=== PATIENT | male | born 1965 | race Caucasian/White ===

== ENCOUNTER 2019-08-09 06:14 | Emergency (ER) | payer MEDICAID, SELFPAY ==
[2019-08-09] VITALS (28 sets, daily range): BP systolic 130–171; BP diastolic 73–112; PULSE 88–114; RESP 14–24; TEMP 37.4; O2SAT 91–96
--- NOTE | 2019-08-09 06:22 | ED.GENADUL_ITS ---
Discharge Plan Disposition Patient Disposition: HOME Condition: Good Discharge Details Chief Complaint: Chest Pain Clinical Impression: Anxiety, Chest pain Primary Care Provider: None,None ED Provider: Bob Zhang Home Meds and New Rx's Prescriptions: No Action No Known Home Meds RF: 0 Discharge Instructions Instructions: Chest Pain (ED) Additional Instructions: At this time your work-up shows no signs of significant abnormality for your heart or lungs. Anxiety may have been a component. However if you have a return of your symptoms it is important to return immediately for reassessment. If you notice any worsening of your symptoms, or any new symptoms such as vomiting, diarrhea, fever, chills, shortness of breath, chest pain, numbness, weakness, or fainting , please return immediately to the emergency department for reevaluation. Please follow up with your primary care provider as soon as possible for reassessment and reevaluation. As always, it was a pleasure participating in your medical care today. Medical Decision Making <Raghu Biswas MD - Last Filed: 08/09/19 08:17> Patient presenting with what I think is likely anxiety/panic attack. Doubt that this is alcohol withdrawal especially since he just drank prior to coming in. Chest tightness for days with normal EKG. Twinges of chest pain are fleeting and not clinically significant. He unfortunately does have tachycardia and is older than 50 so cannot be perked out. D-dimer sent. Low risk by Wells criteria. Will give aspirin but I really do not suspect cardiac etiology for tightness. More likely anxiety and will receive IV Ativan for that. 8:00 - patient's labs are fine except for positive age adjusted d-dimer. His symptoms resolved with Ativan. Chest x-xray with questionable findings on left but he has no fever, cough or white count so not pneumonia. With the positive d-dimer will get CTA. If negative will discharge with few Ativan and refer to PCP. Signed out to Dr. Zhang. ECG Data Attestation: I personally reviewed and interpreted this ECG (s) as follows: Prior ECG tracings: not available for review Interpretation: Sinus tachycardia at 107. Normal axis and intervals. Normal ST segments. <Bob Zhang DO - Last Filed: 08/09/19 10:04> Case was signed out to me by my colleague Dr. Raghu Biswas. Pending CTA results. Patient was evaluated and thought to be very low risk for cardiac etiology and felt that the symptoms more likely anxiety related per Dr. Biswas. Upon my assessment I agree with this assessment. CT Mini results are negative for any PE or significant abnormality. There is evidence of mild emphysema. Laboratory work-up is otherwise unremarkable. Troponin normal, EKG benign. At this time the patient is feeling much better after Ativan was given, and would like to go home. I do feel this is appropriate. Patient will be discharged with close follow-up with his PCP. Clinical symptomatology at this time is clinically inconsistent with ACS, PE or dissection. I have extensively reviewed the treatment plan and discharge instructions with the patient and their family. I have addressed all patient concerns at this time. The patient and family was made aware of what symptoms to monitor for that would warrant a return to the emergency department. Discussed the plan with the patient and family, they demonstrate verbal understanding and agreement with our assessment and plan at this time. HPI <Raghu Biswas MD - Last Filed: 08/09/19 08:17> General Mode of arrival: ambulatory . Date/Time Provider Initiated Documentation: 08/09/19 06:19 . Limitations to Documentation: no limitations . Information obtained by: patient and RN notes reviewed . HPI Narrative: Patient presents to ED with complaint of chest tightness as well as seconds of twinges in his chest. The tightness has been ongoing for days. The twinges com e and go randomly. He feels maybe a little short of breath at times. He denies fever, cough, vomiting, diarrhea, abdominal pain. He reports having issues with anxiety since he lost his job back in the fall. Since then he admits to increased alcohol use. In the last few weeks that alcohol use has increased significantly according to him. He reports having a shot of alcohol prior to coming into ED to be evaluated for this tightness that he is experiencing. He is extremely anxious and shaky here. He denies any significant past medical history. He does use e-cigarettes. Related Data Home Medications Medication Instructions Recorded Confirmed Unknown [No Known Home Meds] 08/09/19 08/09/19 Allergies Allergy/AdvReac Type Severity Reaction Status Date / Time aripiprazole [From Abilify] AdvReac Intermediate Dumb and Unverified 07/22/15 10:58 subdued escitalopram oxalate AdvReac Intermediate Suicidal Unverified 07/22/15 10:58 [From Lexapro] venlafaxine HCl AdvReac Intermediate suicidal Unverified 07/22/15 10:58 [From Effexor] General Stated Complaint: Chest Pain RAE: 2 Review of Systems <Raghu Biswas MD - Last Filed: 08/09/19 08:17> Narrative: 03/27 Review of Systems completed and is negative except as stated above in HPI (Systems reviewed: Const, Eyes, ENT, Resp, CV, GI, , MSK, Skin, Neuro) PFSH <Raghu Biswas MD - Last Filed: 08/09/19 08:17> Medical History (Updated 08/09/19 @ 09:55 by Bob Zhang DO) TBI (traumatic brain injury) (Chronic) Surgical History (Updated 08/09/19 @ 06:36 by Raghu Biswas MD) No significant past surgical history (Acute) Family History Mother , Glialblastoma No problems noted. Father Mental disorder Situational depression (s/p trauma) Son No problems noted. Son No problems noted. Son No problems noted. Paternal Grandmother , Old age at age 92. No problems noted. Paternal Grandfather , Old age at age 92. No problems noted. Maternal Grandmother , CVA at age 80. No problems noted. Maternal Grandfather , [place] at age 76. No problems noted. Social History Smoking/Tobacco Use Status: Current every day Tobacco Type: e-cigarettes Alcohol Intake: current Alcohol Intake frequency: 3 or more drinks per day Alcohol type: beer and hard liquor Drug use: Rarely Substance use type: marijuana Do you feel safe at home: Yes Do you feel safe in your relationship?: Yes Exam <Raghu Biswas MD - Last Filed: 08/09/19 08:17> Narrative Exam Narrative: Vitals: Afebrile. Elevated blood pressure. Mild tachycardia. Normal room air pulse oximetry. Const: Thin male in NAD but appears very anxious. HEENT: NC/AT. Normal facial exam. Eyes: Normal conjunctiva and sclera. Neck: Supple. Trachea midline. Lungs: Normal respiratory effort. Lungs are clear. Cor: RRR without murmur/gallop. Good radial pulses. GI: Soft. NT/ND. No guarding or rebound. Neuro: A+O x 3. Normal speech, mentation, gait. Cranial nerves II - XII grossly intact. No gross motor or sensory deficit. Ext: No C/C/E. No calf tenderness. Skin: Warm and dry without rash. Course <Raghu Biswas MD - Last Filed: 08/09/19 08:17> Vital Signs Vital signs: Vital Signs Respiratory Rate 16 08/09/19 06:17 Blood Pressure 152/112 H 08/09/19 06:17 Pulse Oximetry 95 08/09/19 06:17 Respiratory Rate 16 08/09/19 06:17 Blood Pressure 152/112 H 08/09/19 06:17 Pulse Oximetry 95 08/09/19 06:17 Pain Level 5 08/09/19 06:17 Sign Out <Raghu Biswas MD - Last Filed: 08/09/19 08:17> Sign Out Data: Sign Out Comment: pending CTA Last updated by Raghu Biswas MD at 08/09/19 08:17
--- NOTE | 2019-08-09 06:30 | DI.RAD_ITS ---
EXAM: XR CHEST 2V PA LATERAL INDICATION: chest tightness. COMPARISON: No exams were available for comparison TECHNIQUE: 2D digital imaging was performed. FINDINGS: Heart size is normal. Leads overlie the chest. The lungs appear clear. No infiltrate, effusion or pneumothorax is seen. IMPRESSION: No acute abnormality. DATA REPOSITORY: RADIATION DOSE DELIVERED:
[2019-08-09 07:01] LABS: Abs Immature Grans 0.01 k/cumm (0.0-0.09); Absolute Basophil Count 0.02 k/cumm (0.0-0.2); Absolute Eosinophil Count 0.15 k/cumm (0.0-0.7); Absolute Lymphocyte Count 1.71 k/cumm (1.2-3.4); Absolute Monocyte Count 0.62 k/cumm (0.11-0.7); Absolute Neutrophil Count 3.97 k/cumm (1.2-6.7); Basophils % 0.3; Eosinophils % 2.3; HCT 44.2 % (40.0-50.0); HGB 15.1 g/dL (13.5-17.5); Immature Grans % 0.2 %; Lymphocytes % 26.4; Mean Corp. HGB Concentration 34.2 g/dL (32.0-36.0); Mean Corpuscular Hemoglobin 31.1 pg (27.0-33.0); Mean Corpuscular Volume 91.1 fL (80-95); Mean Platelet Volume 8.7 fL (8.0-11.0); Monocytes % 9.6; Neutrophils % 61.2; Platelet Count 282 x1000/uL (130-400); RBC 4.85 m/cumm (4.50-6.00); RBC Distribution Width 12.9 % (11.8-14.1); White Blood Cell Count 6.48 k/cumm (4.4-10.8)
[2019-08-09] MEDS: LORazepam 2 MG/ML VIAL 1 MG IVP (07:14)
[2019-08-09] MEDS: Aspirin 81 MG CHEW 324 MG CH (07:14)
[2019-08-09 07:20] LABS: ALT 105 U/L (16-63); AST 96 U/L (15-37); Albumin 3.8 g/dL (3.4-5.0); Alkaline Phosphatase 97 U/L (46-116); Anion Gap 12.3 mmol/L (3-11); BUN 13 mg/dL (7-18); Bilirubin, Total 0.5 mg/dL (0.2-1.0); CO2 23.7 mmol/L (21.0-32.0); Calcium 8.6 mg/dL (8.5-10.1); Chloride 106 mmol/L (98-107); Glucose 104 mg/dL (74-106); Potassium 4.1 mmol/L (3.5-5.1); Sodium 142 mmol/L (136-145); Total Protein 6.9 g/dL (6.4-8.2)
--- NOTE | 2019-08-09 07:24 | DI.VRAD_ITS ---
PROCEDURE INFORMATION: Exam: XR Chest, 2 Views Exam date and time: 08/09/2019 7:12 AM Age: 54 years old Clinical indication: Other: Chest tightness TECHNIQUE: Imaging protocol: XR of the chest Views: 2 views. COMPARISON: No relevant prior studies available. FINDINGS: Lungs: Equivocal asymmetric opacity left infrahilar region. Consider pneumonia in the correct clinical setting and clinical correlation recommended. Pleural space: Unremarkable. No pleural effusion. No pneumothorax. Heart/Mediastinum: Unremarkable. No cardiomegaly. Bones/joints: Unremarkable. IMPRESSION: Equivocal asymmetric opacity left infrahilar region. Consider pneumonia in the correct clinical setting and clinical correlation recommended. Dictated and Authenticated by: Cornelius Bentley MD. Ordering:MARJAN Krishnamurthy MD
[2019-08-09 07:27] LABS: Troponin I < 0.05 ng/Ml (<0.06)
[2019-08-09 07:32] LABS: ETHANOL BLOOD 11.3 mg/dL (<3)
[2019-08-09 08:08] LABS: D-Dimer 569 ng/mlFEU (<500)
--- NOTE | 2019-08-09 08:15 | DI.CT_ITS ---
EXAM: CT CHEST PE CTA CLINICAL HISTORY: CP, SOB, elevated dimer TECHNIQUE: Post IV contrast according to the pulmonary embolism protocol. COMPARISON: No exams were available for comparison FINDINGS: There is no evidence of pulmonary emboli or aortic dissection. There is a significant amount of mot ion at the aortic root as well as artifact from contrast entering the IVC which partially obscures th e ascending aorta. There are no significant aortic or coronary artery calcifications. There are und erlying changes of centrilobular emphysema greater in the upper lobes. There is some respiratory mot ion at the lung bases. No focal infiltrates, pleural or pericardial effusion or pneumothorax is seen . The visualized portions of the upper abdomen are unremarkable. IMPRESSION: No evidence of pulmonary emboli or other acute abnormality. [id number] centrilobular emphysema .
[2019-08-09] MEDS: Omnipaque 350 MG/ML 100 ML BTL IJ (08:51)
[2019-08-09] MEDS: Normal Saline - Diluent 50 ML VIAL IV (08:54)
[2019-08-09] MEDS: LORazepam 1 MG TAB 4 MG PO (10:00)
== END 2019-08-09 10:25 | disposition home or self-care (01) ==
PROVIDERS: Emergency Medicine; Emergency Provider Student in an Organized Health Care Education/Training Program
DX: R07.89 Other chest pain (principal); F41.0 Panic disorder [episodic paroxysmal anxiety]; R79.1 Abnormal coagulation profile
CPT/HCPCS: 36415; 71275; 80053; 93005; 96374; 99285; 71046; 80320; 83735; 84484; 85025; 85379; 93010; J2060; J3490

== ENCOUNTER 2019-09-08 12:45 | Inpatient (IN) | payer MEDICAID, SELFPAY ==
[2019-09-08] VITALS (23 sets, daily range): BP systolic 145–188; BP diastolic 89–114; PULSE 93–137; RESP 12–30; TEMP 36.7–38.4; O2SAT 89–100
--- NOTE | 2019-09-08 13:03 | W.ED.GENAD ---
Discharge Plan Disposition Patient Disposition: [facility] INPATIENT Condition: Serious Discharge Details Chief Complaint: Abd Prob Clinical Impression: Perforated abdominal viscus Primary Care Provider: None,None ED Provider: Corwin Juan Home Meds and New Rx's Prescriptions: No Action No Known Home Meds RF: 0 Medical Decision Making This is a 54-year-old male presents from home stating he has had 2 days of slowly progressive abdominal pain that he describes as diffuse. Today seem to be worse with movement and he lost his appetite. He arrives a temp of 36, borderline pulse of 100, blood pressure somewhat elevated. Differential diagnosis is broad and would include gastritis, cholecystitis, biliary colic. Patient given analgesia, fluid resuscitation, referred for laboratory testing, urinalysis, CT imaging. Labs noted white blood cell count of 18.5. Medic at 46, platelets 369. Chemistries with elevated lactic acid of 2.2. AST 44, ALT 73, total bili 0.8. Lipase is unremarkable, troponin is negative. CT images show inflammatory changes distal stomach, trace free air present per Dr. Plunkett. Concerning for perforated gastric or duodenal ulcer. On repeat history taken, the patient will note an uptick in the use of ibuprofen recently. After returning from CT, patient spiked a temperature to 38.4 ?C. Patient given PPI and antibiotics. He is kept n.p.o. He received 2 L of normal saline. Case discussed with on-call surgery, Dr. Gregorio, who will see the patient in consultation. After receiving the news of probable perforated viscus, patient became quite anxious, his heart rate iva. Was given Ativan as an anxiolytic. ECG Data Attestation: I personally reviewed and interpreted this ECG (s) as follows: Interpretation: Normal sinus rhythm, rate of 100, the QRS is narrow, there is no ST segment elevation present. QTC of 460 HPI General Mode of arrival: ambulatory. Date/Time Provider Initiated Documentation: 09/08/19 12:46. Limitations to Documentation: no limitations. Information obtained by: patient. History of Present Illness 54 year old M presents to the emergency department with the chief complaint of Abdominal pain, described as mild and moderate, Quality is described as constant, and is localized to the abdomen. Patient reports no radiation. Patient started experiencing this day(s) and it has been constant. No relieving factors improve symptom(s), Movement worsens symptoms . Patient notes no other symptoms.. Patient did receive the following treatments prior to arrival, none Related Data Home Medications Medication Instructions Recorded Confirmed Unknown [No Known Home Meds] 08/09/19 08/09/19 Allergies Allergy/AdvReac Type Severity Reaction Status Date / Time aripiprazole [From Abilify] AdvReac Intermediate Dumb and Unverified 09/08/19 13:03 subdued escitalopram oxalate AdvReac Intermediate Suicidal Unverified 09/08/19 13:03 [From Lexapro] venlafaxine HCl AdvReac Intermediate suicidal Unverified 09/08/19 13:03 [From Effexor] General Stated Complaint: Abd Prob RAE: 3 Review of Systems Narrative: 6 systems reviewed and otherwise negative [facility] Medical History TBI (traumatic brain injury) (Chronic) Surgical History No significant past surgical history (Acute) Family History Mother , Glialblastoma No problems noted. Father Mental disorder Situational depression (s/p trauma) Son No problems noted. Son No problems noted. Son No problems noted. Paternal Grandmother , Old age at age 92. No problems noted. Paternal Grandfather , Old age at age 92. No problems noted. Maternal Grandmother , CVA at age 80. No problems noted. Maternal Grandfather , [place] at age 76. No problems noted. Social History Smoking/Tobacco Use Status: Current every day Tobacco Type: e-cigarettes Alcohol Intake: current Alcohol Intake frequency: 3 or more drinks per day Alcohol type: beer Drug use: Occasionally Substance use type: marijuana Do you feel safe at home: Yes Do you feel safe in your relationship?: Yes Exam Narrative Exam Narrative: GEN: awake, alert, oriented 3. Pleasant, well groomed, interactive. HEAD: Normocephalic, atraumatic ENT: Mucous membranes moist, oropharynx unremarkable, External ear exam unremarkable EYES: PERRL, EOMI NECK: Full ROM, no LISA, no menigismus CHEST/RESP: Nontender, clear to auscultation bilateral, no wheeze/rhonchi/rales CARDIOVASCULAR: RRR, no murmur, rub radames. 2+ Rad pulse bilateral ABDOMEN: Soft, tender to palpation mid abdomen, no mass. +Bowel sounds EXT: Full ROM, no edema, no rash Neuro: Grossly normal neurologic exam, conversant, interactive. Psych: Speech fluent, thoughts congruent, affect normal Course Vital Signs Vital signs: Vital Signs Temperature 36.7 C 09/08/19 12:50 Pulse 106 H 09/08/19 12:50 Blood Pressure 188/112 H 09/08/19 12:50 Pulse Oximetry 97 09/08/19 12:50 Temperature 36.7 C 09/08/19 12:50 Temperature Source Skin 09/08/19 12:50 Pulse 106 H 09/08/19 12:50 Respiratory Effort Non-Labored 09/08/19 12:54 Blood Pressure 188/112 H 09/08/19 12:50 Blood Pressure Position Sitting 09/08/19 12:50 Pulse Oximetry 97 09/08/19 12:50 Oxygen Delivery Method Room Air 09/08/19 12:50 Oxygen Flow Rate 0 09/08/19 12:50 Pain Level 8 09/08/19 12:54 Critical Care Time Critical Care Time Critical Care Time: Yes Total Critical Care Time: 30 Attestation: Bedside management, review of studies, discussion with consultants.
[2019-09-08] MEDS: Normal Saline 1,000 ML 1000 ML IV ×2 (13:22→14:23)
[2019-09-08 13:27] LABS: Abs Immature Grans 0.06 k/cumm (0.0-0.09); Absolute Basophil Count 0.02 k/cumm (0.0-0.2); Absolute Lymphocyte Count 0.69 k/cumm (1.2-3.4); Basophils % 0.1; Eosinophils % 0.1; HCT 46.7 % (40.0-50.0); Immature Grans % 0.3 %; Lactate 2.2 mmol/L (0.6-1.4); Lymphocytes % 3.7; Mean Corp. HGB Concentration 34.3 g/dL (32.0-36.0); Mean Corpuscular Hemoglobin 31.6 pg (27.0-33.0); Mean Corpuscular Volume 92.1 fL (80-95); Mean Platelet Volume 8.6 fL (8.0-11.0); Monocytes % 6.4; Neutrophils % 89.4; Platelet Count 369 x1000/uL (130-400); RBC 5.07 m/cumm (4.50-6.00); RBC Distribution Width 12.9 % (11.8-14.1); White Blood Cell Count 18.57 k/cumm (4.4-10.8)
[2019-09-08 13:29] LABS: Absolute Eosinophil Count 0.02 k/cumm (0.0-0.7); Absolute Monocyte Count 1.19 k/cumm (0.11-0.7)
--- NOTE | 2019-09-08 13:30 | DI.CT_ITS ---
EXAM: CT ABDOMEN AND PELVIS W CLINICAL HISTORY: ABDOMINAL PAIN, MID TO R. ELEVATED INFLAMMATORY MARKERS TECHNIQUE: Imaging Protocol: Axial computed tomography images with coronal and sagittal reformatted images were created and reviewed CONTRAST MATERIAL: Intravenous: Omnipaque 350 Contrast volume:91 mL Oral: No COMPARISON: CT CHEST PE CTA from 08/09/2019 FINDINGS: ABDOMEN: Lung Bases: Dependent atelectasis in the lung bases. Liver: There is diffuse decreased attenuation of the liver suggesting fatty infiltration. There is a hypodensity in the left lobe of the liver; it is too small for further characterization but likely r eflects a small cyst. Portal, Superior Mesenteric, and Splenic Veins: Unremarkable. Gallbladder and Biliary Tract: No radiodense calculus or dilation. Pancreas: Normal density, no abnormal calcifications or inflammatory process. Spleen: Normal. Adrenals: No masses seen. Kidneys: Normal size, contour and axis. 2 mm nonobstructing stone in the lower pole of the right kidn ey and a 3 mm nonobstructing stone in the midpole of the left kidney. No masses seen. Abdominal Aorta: Abdominal portion non-dilated. Atherosclerosis. Bowel: The distal stomach and proximal duodenum show moderate bowel wall thickening and enhancement o f the mucosa. There is inflammatory stranding around this section of the bowel. There is a small am ount of free fluid in the adjacent gallbladder fossa. There is bowel wall thickening of an adjacent loop of small bowel, likely secondarily inflamed. There is free air seen in the abdomen including a small focus of free air adjacent to the distal stomach. The findings raise a question for perforated gastric ulcer. No evidence of acute appendicitis. Mildly dilated loops of small bowel are present likely reflecting an ileus. There is colonic diverticulosis but no evidence of acute diverticulitis. Peritoneal Cavity: There is a small amount of pelvic and abdominal ascites. Pneumoperitoneum is pres ent. Lymph Nodes: Within normal limits. Bones: Degenerative changes. Soft Tissues: Small fluid-containing right inguinal hernia. PELVIS: Bladder: Symmetric distention, no gross wall thickening. Reproductive Organs: Unremarkable as visualized. Lymph Nodes: Within normal limits. Bones: Degenerative changes. IMPRESSION: 1. Prominent bowel wall thickening and mucosal enhancement of the distal stomach and proximal duodenu m with surrounding inflammatory stranding with an adjacent focus of extraluminal air. This, in conju nction with the pneumoperitoneum, raises a question of perforated ulcer. 2. Small amount of abdominal and pelvic ascites. 3. Findings suspicious for ileus. 4. Moderate wall thickening in a loop of small bowel in the right upper quadrant adjacent to the infl carla stomach suspicious for secondary enteritis. 5. The findings were discussed with the Emergency Department on the date of the examination. Critical Findings RADIATION DOSE DELIVERED: DATA REPOSITORY: All CT scans at this facility are submitted to the National Radiology Data Registry (NRDR) Dose Index Registry (DIR) with the [employer] ([employer]). RADIATION OPTIMIZATION: All CT scans at this facility use at least one of these dose optimization te chniques: automated exposure control; mA and/or kV adjustment per patient size (includes targeted exa ms where dose is matched to clinical indication); or iterative reconstruction.
[2019-09-08] MEDS: Ondansetron 4 MG/2 ML VIAL IVP (13:32)
[2019-09-08 13:53] LABS: ALT 73 U/L (16-63); AST 44 U/L (15-37); Albumin 3.8 g/dL (3.4-5.0); Alkaline Phosphatase 110 U/L (46-116); Anion Gap 7.7 mmol/L (3-11); BUN 9 mg/dL (7-18); Bilirubin, Total 0.8 mg/dL (0.2-1.0); CO2 27.3 mmol/L (21.0-32.0); CREATININE 0.92 mg/dL (0.70-1.30); Calcium 8.7 mg/dL (8.5-10.1); Chloride 103 mmol/L (98-107); Glucose 140 mg/dL (74-106); Lipase 129 U/L (73-393); Magnesium 2.3 mg/dL (1.8-2.4); Potassium 4.4 mmol/L (3.5-5.1); Sodium 138 mmol/L (136-145); Total Protein 7.4 g/dL (6.4-8.2)
[2019-09-08 13:56] LABS: Troponin I < 0.05 ng/Ml (<0.06)
[2019-09-08 13:57] LABS: Bilirubin Negative (Negative); Blood Negative (Negative); Clarity Clear (Clear); Glucose Negative (Negative); Ketones Negative (Negative); Leukocyte Esterase Negative (Negative); Nitrite Negative (Negative); Urobilinogen 0.2 EU/dL (Up TO 0.2); pH 8.5 (5-8)
[2019-09-08] MEDS: HYDROmorphone 2 MG/ML VIAL 0.5 MG IV ×2 (13:57→14:08)
[2019-09-08 14:07] LABS: Bacteria Rare HPF (Negative); C & S Indicated? No; Casts Negative LPF (Negative); Crystals Negative HPF (Negative); Epithelial Cells Few HPF (Negative); Mucus Moderate (Negative); RBC Negative HPF (0-2); WBC 0-2 HPF (0-5)
[2019-09-08] MEDS: Omnipaque 350 MG/ML 100 ML BTL IJ (14:57)
[2019-09-08] MEDS: Ketorolac 15 MG/ML VIAL IVP (15:33)
[2019-09-08] MEDS: Pantoprazole 40 MG VIAL 80 MG IVP (15:52)
[2019-09-08] MEDS: LORazepam 2 MG/ML VIAL 1 MG IVP (16:24)
[2019-09-08] MEDS: Lactated Ringers 1,000 ML 150 ML IV (16:27)
--- NOTE | 2019-09-08 16:41 | HPE_ITS ---
Date of service: 09/08/19 Time of Service: 16:41 Assessment and Plan Assessment and plan (1) Perforated viscus: Status: Acute Assessment and plan: The CT is reviewed and suggests a perforated gastric or duodenal ulcer. The patient has findings consistent with peritonitis - exploratory laparotomy is advised with anticipated oversewing of an ulcer. I do not think he is a good candidate for non-operate management with NG/antibiotics alone. The procedure and risks were discussed including infection, bleeding, injury to other organs, leak, hernia. Will plan to admit to the ICU postop. He will need an NG and drain postop. He agrees to proceed. History of Present Illness Narrative: This patient reports a two day history of abdominal pain that worsened today. He presented to the ER and was found to be tachycardic with an elevated temp. CT scan of the abd/pelvis shows evidence of free air with inflammation near the distal stomach/duodenum. He reports taking a fair amount of ibuprofen recently for tooth pain. He also has been drinking more alcohol to ease his anxiety. Review of Systems All systems reviewed & are unremarkable except as noted in HPI and below PFSH Medical History TBI (traumatic brain injury) (Chronic) Surgical History No significant past surgical history (Acute) Family History Mother , Glialblastoma No problems noted. Father Mental disorder Situational depression (s/p trauma) Son No problems noted. Son No problems noted. Son No problems noted. Paternal Grandmother , Old age at age 92. No problems noted. Paternal Grandfather , Old age at age 92. No problems noted. Maternal Grandmother , CVA at age 80. No problems noted. Maternal Grandfather , [place] at age 76. No problems noted. Social History Smoking/Tobacco Use Status: Current every day Tobacco Type: e-cigarettes Alcohol Intake: current Alcohol Intake frequency: 3 or more drinks per day Alcohol type: beer Drug use: Occasionally Substance use type: marijuana Do you feel safe at home: Yes Do you feel safe in your relationship?: Yes Meds Home Medications and Allergies Home Medications Medication Instructions Recorded Confirmed Type Unknown [No Known Home Meds] 08/09/19 08/09/19 History Allergies Allergy/AdvReac Type Severity Reaction Status Date / Time aripiprazole [From Abilify] AdvReac Intermediate Dumb and Unverified 09/08/19 13:03 subdued escitalopram oxalate AdvReac Intermediate Suicidal Unverified 09/08/19 13:03 [From Lexapro] venlafaxine HCl AdvReac Intermediate suicidal Unverified 09/08/19 13:03 [From Effexor] Exam Const Orientation: oriented x3 HENMT Head: normal to inspection Other: poor dentition Eyes Sclera: sclerae normal Pupils: PERRL Neck Neck: no lymphadenopathy Carotids: no bruits Resp Effort & Inspection: normal respiratory effort Auscultation: clear to auscultation bilaterally Cardio Rate: regular rate Rhythm: regular rhythm GI Inspection: distended Palpation: no hepatosplenomegaly, no hernias and tender (generalized but mostly epigastric) Skin General skin exam: no rashes or lesions noted Neuro General: patient alert Extrem General: normal to inspection Psych Attitude: cooperative Results Labs Result diagrams: 09/08/19 13:15 09/08/19 13:15 Labs: Laboratory Results - last 24 hr 09/08/19 09/08/19 09/08/19 13:15 13:15 13:15 WBC 18.57 H RBC 5.07 Hgb 16.0 Hct 46.7 MCV 92.1 MCH 31.6 MCHC 34.3 RDW 12.9 Plt Count 369 MPV 8.6 Immature Gran % 0.3 Neutrophils % 89.4 Lymphocytes % 3.7 Monocytes % 6.4 Eosinophils % 0.1 Basophils % 0.1 Absolute Neutrophils 16.60 H Absolute Lymphocytes 0.69 L Absolute Monocytes 1.19 H Absolute Eosinophils 0.02 Absolute Basophils 0.02 Sodium 138 Potassium 4.4 Chloride 103 Carbon Dioxide 27.3 Anion Gap 7.7 BUN 9 Creatinine 0.92 Estimated GFR/1.73 m2 >= 60.00 Glucose 140 H Lactate 2.2 H* Calcium 8.7 Magnesium 2.3 Total Bilirubin 0.8 AST 44 H ALT 73 H Alkaline Phosphatase 110 Troponin I < 0.05 Total Protein 7.4 Albumin 3.8 Lipase 129 Urine Color Urine Clarity Urine pH Ur Specific [place] Urine Protein Urine Ketones Urine Blood Urine Nitrite Urine Bilirubin Urine Urobilinogen Ur Leukocyte Esterase Urine RBC Urine WBC Ur Epithelial Cells Urine Crystals Urine Bacteria Urine Casts Urine Mucus Ur Culture Indicated? Urine Glucose 09/08/19 13:50 WBC RBC Hgb Hct MCV MCH MCHC RDW Plt Count MPV Immature Gran % Neutrophils % Lymphocytes % Monocytes % Eosinophils % Basophils % Absolute Neutrophils Absolute Lymphocytes Absolute Monocytes Absolute Eosinophils Absolute Basophils Sodium Potassium Chloride Carbon Dioxide Anion Gap BUN Creatinine Estimated GFR/1.73 m2 Glucose Lactate Calcium Magnesium Total Bilirubin AST ALT Alkaline Phosphatase Troponin I Total Protein Albumin Lipase Urine Color Yellow Urine Clarity Clear Urine pH 8.5 H Ur Specific [place] 1.020 Urine Protein 30 H Urine Ketones Negative Urine Blood Negative Urine Nitrite Negative Urine Bilirubin Negative Urine Urobilinogen 0.2 Ur Leukocyte Esterase Negative Urine RBC Negative Urine WBC 0-2 Ur Epithelial Cells Few Urine Crystals Negative Urine Bacteria Rare Urine Casts Negative Urine Mucus Moderate Ur Culture Indicated? No Urine Glucose Negative Last Vital Signs Temp 100.2 F H 09/08/19 15:57 Pulse 130 H 09/08/19 15:57 Resp 18 09/08/19 15:57 BP 156/112 H 09/08/19 15:57 Pulse Ox 92 L 09/08/19 15:57 COVID-19 Screening Traveled to [place] from one of the affected countries or regions?: No Recent travel in the [place] within the last 8 weeks?: No Recent out of the country travel within the last 8 weeks?: No Exposure or possible exposure to illness during travel?: No Had IN PERSON contact w/suspected or confirmed C-19 person: No Have you had the following symptoms in the past few days?: No Symptoms noted since travel?: No Symptoms
[2019-09-08] MEDS: PIPERACILLIN/TAZO 3.375 GM in Normal Saline 50 ML IVPB (21:26)
[2019-09-09] VITALS (9 sets, daily range): BP systolic 148–168; BP diastolic 89–102; PULSE 72–93; RESP 12–20; TEMP 36.7–37.8; O2SAT 91–98
--- NOTE | 2019-09-09 | DI.RAD_ITS ---
Portable ap chest post line: CLINICAL HISTORY COMPARISON: XR CHEST 2V PA LATERAL from 08/09/2019 FINDINGS: Portable AP chest obtained at 1101 hours. Heart is not enlarged. There is an endotracheal tube in p lace about 5 cm above the tanika. Left lung is grossly clear. There are some patchy and streaky rad iodensities in the right lung base to mid lung, question small areas of atelectasis and/or consolidat ion. Appropriate follow-up studies requested. The right-sided radiodensities are new since radiograph of 08/09/2019.
[2019-09-09] MEDS: PIPERACILLIN/TAZO 3.375 GM in Normal Saline 50 ML IVPB ×4 (02:25→20:00)
[2019-09-09] MEDS: Normal Saline Flush 10 ML SYR IVP ×3 (05:39→20:52)
[2019-09-09] MEDS: Lactated Ringers 1,000 ML 150 ML IV (05:52)
[2019-09-09] MEDS: LORazepam 2 MG/ML VIAL IVP (06:35)
[2019-09-09 07:10] LABS: Abs Immature Grans 0.03 k/cumm (0.0-0.09); Absolute Basophil Count 0.01 k/cumm (0.0-0.2); Absolute Lymphocyte Count 0.72 k/cumm (1.2-3.4); Absolute Monocyte Count 0.69 k/cumm (0.11-0.7); Absolute Neutrophil Count 12.65 k/cumm (1.2-6.7); Basophils % 0.1; HGB 14.7 g/dL (13.5-17.5); Immature Grans % 0.2 %; Lymphocytes % 5.1; Mean Corp. HGB Concentration 33.4 g/dL (32.0-36.0); Mean Corpuscular Hemoglobin 31.5 pg (27.0-33.0); Mean Corpuscular Volume 94.2 fL (80-95); Mean Platelet Volume 9.1 fL (8.0-11.0); Monocytes % 4.9; Neutrophils % 89.7; Platelet Count 340 x1000/uL (130-400); RBC 4.67 m/cumm (4.50-6.00); RBC Distribution Width 13.1 % (11.8-14.1)
[2019-09-09 07:15] LABS: Anion Gap 8.4 mmol/L (3-11); BUN 10 mg/dL (7-18); CO2 25.6 mmol/L (21.0-32.0); CREATININE 0.89 mg/dL (0.70-1.30); Calcium 8.6 mg/dL (8.5-10.1); Chloride 106 mmol/L (98-107); Glucose 127 mg/dL (74-106); Potassium 4.1 mmol/L (3.5-5.1); Sodium 140 mmol/L (136-145)
[2019-09-09] MEDS: Pantoprazole 40 MG VIAL IVP (08:11)
--- NOTE | 2019-09-09 09:15 | INITIAL_ITS ---
- If Service Date Differs Date of service: 09/09/19 Time of Service: 09:15 Care Management Initial Assess REASON FOR HOSPITALIZATION:: perforated viscus PAST MEDICAL HISTORY/PAST SURGICAL HISTORY:: Medical History . TBI (traumatic brain injury) (Chronic). Surgical History . No significant past surgical history (Acute) PREVIOUS FUNCTIONAL STATUS/SOCIAL/FAMILY SUPPORTS:: Mike lives with his girlfriend Linn in [facility]. They both have children from previous relationships and Mike sates that they are close to them. Mike is unemployed at the moment. He does not receive any community services and is independent with care and activities. CURRENT FUNCTIONAL STATUS:: Mike was sitting up in bed when CM met with him. He was polite but guarded in his interactions. He began the conversation by asserting that he would not answer questions about whether or not he had guns in his home. CM assured him that was not a question routinely asked by CM and that we were interested in his supports and ways to help him. ADVANCE DIRECTIVES:: None on file Has patient been provided with information about the portal?: Yes Did the patient sign up for the portal?: No CODE STATUS:: Full Code INSURANCE COVERAGE / FINANCIAL ISSUES:: Medicaid CURRENT HOME/COMMUNITY SERVICES/EQUIPMENT:: none PRIMARY CARE PHYSICIAN:: None POTENTIAL DISCHARGE NEEDS:: Establish with a new PCP, follow up with discharge plan of care. PATIENT/FAMILY EDUCATION NEEDS:: Discharge plan, limitations, follow up plan, Ask Me Three TRANSPORTATION:: via private vehicle with friend PLAN:: Mike will likely be discharged home, possibly with new home health services for wound care, if indicated. He will need to establish with a new PCP. Mike will transport with his girfriend Linn via private vehicle. CM will continue to support patient, family and care team with discharge planning needs.
--- NOTE | 2019-09-09 09:58 | PHA.ADMREV ---
Pharmacy Clinical Review - Admission Clinical Review (Last Reviewed 09/08/19 @ 16:41 by Anjelica Gregorio MD) Perforated viscus (Acute) aripiprazole [From Abilify] Adverse Reaction (Intermediate, Unverified 09/08/19 21:32) Dumb and subdued escitalopram oxalate [From Lexapro] Adverse Reaction (Intermediate, Unverified 09/08/19 21:32) Suicidal venlafaxine HCl [From Effexor] Adverse Reaction (Intermediate, Unverified 09/08/19 21:32) suicidal Height 6 ft Weight 71.9 kg - Renal Dosing Renal Dosing: BUN 10 mg/dL (7-18) 09/09/19 06:35 Creatinine 0.89 mg/dL (0.70-1.30) 09/09/19 06:35 Medications needing adjustments: Reviewed (CRCL ~95ML/MIN) - Anticoagulation Anticoagulation: Hgb 14.7 g/dL (13.5-17.5) 09/09/19 06:35 Hct 44.0 % (40.0-50.0) 09/09/19 06:35 Plt Count 340 x1000/uL (130-400) 09/09/19 06:35 Creatinine 0.89 mg/dL (0.70-1.30) 09/09/19 06:35 DVT Prohphylaxis: Reviewed (NO post op pt for perforated viscus) Therapeutic Anticoagulation: N/A - Opiate Usage Evaluate Pain Scale/Pains Meds: Reviewed Scheduled Bowel Reg ordered if on Opiates?: No (NPO) - Relevant Labs Sodium 140 mmol/L (136-145) 09/09/19 06:35 Potassium 4.1 mmol/L (3.5-5.1) 09/09/19 06:35 Chloride 106 mmol/L (98-107) 09/09/19 06:35 Magnesium 2.3 mg/dL (1.8-2.4) 09/08/19 13:15 Electrolytes, C-Reactive P, ESR: Reviewed - Antimicrobial Stewardship Antibiotic appropriateness: Reviewed (pip/tazo IV day 2) Surgical Abx d/c within 24 hr: No Culture review/Resistance: Reviewed (surgical culture pending) - DM Control DM Control: Glucose 127 mg/dL (74-106) H 09/09/19 06:35 Insulin Dosing: N/A - Heart Failure/AL Heart Failure/AL: Troponin I < 0.05 ng/Ml (<0.06) 09/08/19 13:15 EF%, NIGEL's, B-Blockers, Diuretics: N/A - BP Control BP Control: Blood Pressure [Right Radial 148/89 Artery] If elevated: Reviewed - QTc Review If Elevated: Reviewed (467) - IV to PO Switch IV Medications: Reviewed (NPO) - Home Meds Home Med List reviewed: Reviewed (no home meds listed)
--- NOTE | 2019-09-09 11:21 | DI.VRAD_ITS ---
Addendum created by Kelly Garcia MD on 09/09/2019 11:21:34 AM EDT Addendum: No enteric tube is identified Initial report created on 09/09/2019 11:20:45 AM EDT PROCEDURE INFORMATION: Exam: XR Chest, 1 View Exam date and time: 09/09/2019 10:59 AM Age: 54 years old Clinical indication: Device placement; Ng tube TECHNIQUE: Imaging protocol: XR of the chest Views: 1 view. COMPARISON: CR XR CHEST 2V PA LATERAL 08/09/2019 7:11 AM FINDINGS: Tubes, catheters and devices: The endotracheal tube terminates 5 cm above the tanika. Lungs: Opacity in the medial right base may represent atelectasis or pneumonia. Pleural space: Unremarkable. No pleural effusion. No pneumothorax. Heart/Mediastinum: Unremarkable. No cardiomegaly. Bones/joints: Unremarkable. IMPRESSION: 1. The endotracheal tube terminates 5 cm above the tanika. 2. Opacity in the medial right base may represent atelectasis or pneumonia. Dictated and Authenticated by: Kelly Garcia MD. Ordering:EDMUND Dejesus MD
[2019-09-09] MEDS: Lactated Ringers 1,000 ML 125 ML IV ×2 (14:02→23:59)
--- NOTE | 2019-09-09 16:20 | PGE_ITS ---
Date of Service Date of service: 09/09/19 Time of Service: 12:00 Assessment and Plan Assessment and plan (1) Perforated duodenal ulcer: Status: Acute Assessment and plan: The NG was noted to have partially pulled out this am. CXR showed it to be in the midesophagus. Patient refuses replacement so it is removed. Continue NPO. WBC improved, continue Zosyn, await cultures. Transfer to Med Surg, ambulate. Stool for H pylori when bowel functioning Monitor for alcohol withdrawal. Patient declines nicotine patch (regular vaping.) Mild HTN. Probably chronic with some pain effect. Will monitor and start on low dose calcium channel sherine if needed. Subjective Subjective Interval history since last seen: Patient had more incisional pain this am as local wore off. Controlled now with morphine. Is complaining about NG No flatus. Exam Narrative Exam Narrative: Alert Abdomen soft, not distended. Small amount of dark blood from upper aspect of incision. Intact. ZHANE is serosanguinous, no bile Objective Objective Clinical Data: Abnormal lab results 09/09/19 09/09/19 Range/Units 06:35 06:35 WBC 14.10 H (4.4-10.8) k/cumm Absolute Neutrophils 12.65 H (1.2-6.7) k/cumm Absolute Lymphocytes 0.72 L (1.2-3.4) k/cumm Glucose 127 H (74-106) mg/dL Vital Signs Temperature 100.0 F H 09/09/19 15:45 Temperature Source Tympanic 09/09/19 15:45 Pulse 93 H 09/09/19 15:45 Pulse Rhythm Regular 09/08/19 15:57 Pulse Strength Normal 09/08/19 15:57 Pulse 97 H 09/08/19 21:10 Respiratory Rate 18 09/09/19 15:45 Respiratory Effort 09/09/19 11:17 Respiratory Depth Normal 09/09/19 11:17 Respiratory Pattern Normal 09/09/19 11:17 Blood Pressure 161/102 H 09/09/19 15:45 Blood Pressure Mean 114 09/09/19 11:17 Blood Pressure Position Supine 09/09/19 08:22 Pulse Oximetry 98 09/09/19 15:45 Oxygen Delivery Method Room Air 09/09/19 15:45 Oxygen Flow Rate 0 09/09/19 15:45 Pain Level 7 09/09/19 15:45 Intake & Output 09/08/19 09/09/19 09/09/19 23:59 11:59 23:59 Intake Total 3160 / 3160 100 / 150 50 / 150 Output Total 1090 / 1090 1930 / 3250 1320 / 3250 Balance 2070 / 2070 -1830 / -3100 -1270 / -3100 Weight 158 lb 8.198 oz Intake: IV 3160 / 3160 100 / 150 50 / 150 Output: Gastric Drainage 0 / 0 Right Nare 0 / 0 Drainage 40 / 40 30 / 50 20 / 50 Right Mid Abdomen 40 / 40 30 / 50 20 / 50 Urine 1050 / 1050 1900 / 3200 1300 / 3200 Other: Urine Color Pale Pale Yellow Yellow Urine Appearance Clear Clear Comment Patient states he has frequent urination only at night Kat catheter. Voiding Methods Indwelling Catheter Laboratory Results WBC 14.10 k/cumm (4.4-10.8) H 09/09/19 06:35 RBC 4.67 m/cumm (4.50-6.00) 09/09/19 06:35 Hgb 14.7 g/dL (13.5-17.5) 09/09/19 06:35 Hct 44.0 % (40.0-50.0) 09/09/19 06:35 MCV 94.2 fL (80-95) 09/09/19 06:35 MCH 31.5 pg (27.0-33.0) 09/09/19 06:35 MCHC 33.4 g/dL (32.0-36.0) 09/09/19 06:35 RDW 13.1 % (11.8-14.1) 09/09/19 06:35 Plt Count 340 x1000/uL (130-400) 09/09/19 06:35 MPV 9.1 fL (8.0-11.0) 09/09/19 06:35 Immature Gran % 0.2 % 09/09/19 06:35 Neutrophils % 89.7 09/09/19 06:35 Lymphocytes % 5.1 09/09/19 06:35 Monocytes % 4.9 09/09/19 06:35 Eosinophils % 0.0 09/09/19 06:35 Basophils % 0.1 09/09/19 06:35 Absolute Neutrophils 12.65 k/cumm (1.2-6.7) H 09/09/19 06:35 Absolute Lymphocytes 0.72 k/cumm (1.2-3.4) L 09/09/19 06:35 Absolute Monocytes 0.69 k/cumm (0.11-0.7) 09/09/19 06:35 Absolute Eosinophils 0.00 k/cumm (0.0-0.7) 09/09/19 06:35 Absolute Basophils 0.01 k/cumm (0.0-0.2) 09/09/19 06:35 Sodium 140 mmol/L (136-145) 09/09/19 06:35 Potassium 4.1 mmol/L (3.5-5.1) 09/09/19 06:35 Chloride 106 mmol/L (98-107) 09/09/19 06:35 Carbon Dioxide 25.6 mmol/L (21.0-32.0) 09/09/19 06:35 Anion Gap 8.4 mmol/L (3-11) 09/09/19 06:35 BUN 10 mg/dL (7-18) 09/09/19 06:35 Creatinine 0.89 mg/dL (0.70-1.30) 09/09/19 06:35 Estimated GFR/1.73 m2 >= 60.00 (mL/min/1.73m2) 09/09/19 06:35 Glucose 127 mg/dL (74-106) H 09/09/19 06:35 Lactate 2.2 mmol/L (0.6-1.4) H* 09/08/19 13:15 Calcium 8.6 mg/dL (8.5-10.1) 09/09/19 06:35 Magnesium 2.3 mg/dL (1.8-2.4) 09/08/19 13:15 Total Bilirubin 0.8 mg/dL (0.2-1.0) 09/08/19 13:15 AST 44 U/L (15-37) H 09/08/19 13:15 ALT 73 U/L (16-63) H 09/08/19 13:15 Alkaline Phosphatase 110 U/L (46-116) 09/08/19 13:15 Troponin I < 0.05 ng/Ml (<0.06) 09/08/19 13:15 Total Protein 7.4 g/dL (6.4-8.2) 09/08/19 13:15 Albumin 3.8 g/dL (3.4-5.0) 09/08/19 13:15 Lipase 129 U/L (73-393) 09/08/19 13:15 Urine Color Yellow (Yellow) 09/08/19 13:50 Urine Clarity Clear (Clear) 09/08/19 13:50 Urine pH 8.5 (5-8) H 09/08/19 13:50 Ur Specific [place] 1.020 (1.005-1.025) 09/08/19 13:50 Urine Protein 30 mg/dL (Negative) H 09/08/19 13:50 Urine Ketones Negative mg/dL (Negative) 09/08/19 13:50 Urine Blood Negative (Negative) 09/08/19 13:50 Urine Nitrite Negative (Negative) 09/08/19 13:50 Urine Bilirubin Negative (Negative) 09/08/19 13:50 Urine Urobilinogen 0.2 EU/dL (Up TO 0.2) 09/08/19 13:50 Ur Leukocyte Esterase Negative (Negative) 09/08/19 13:50 Urine RBC Negative HPF (0-2) 09/08/19 13:50 Urine WBC 0-2 HPF (0-5) 09/08/19 13:50 Ur Epithelial Cells Few HPF (Negative) 09/08/19 13:50 Urine Crystals Negative HPF (Negative) 09/08/19 13:50 Urine Bacteria Rare HPF (Negative) 09/08/19 13:50 Urine Casts Negative LPF (Negative) 09/08/19 13:50 Urine Mucus Moderate (Negative) 09/08/19 13:50 Ur Culture Indicated? No 09/08/19 13:50 Urine Glucose Negative mg/dL (Negative) 09/08/19 13:50 Patient ABO/Rh O Positive 09/08/19 16:00 Antibody Screen Negative 09/08/19 16:00
[2019-09-09] MEDS: Mylanta Suspension 30 ML CUP PO (20:00)
[2019-09-09] MEDS: Ondansetron 4 MG/2 ML VIAL IVP (20:51)
[2019-09-10] VITALS (8 sets, daily range): BP systolic 154–171; BP diastolic 80–108; PULSE 72–82; RESP 16–20; TEMP 36.7–37.6; O2SAT 92–97
[2019-09-10] MEDS: PIPERACILLIN/TAZO 3.375 GM in Normal Saline 50 ML IVPB ×4 (02:28→19:45)
[2019-09-10] MEDS: Normal Saline Flush 10 ML SYR IVP ×5 (02:32→19:45)
[2019-09-10 06:28] LABS: HCT 42.6 % (40.0-50.0); HGB 14.5 g/dL (13.5-17.5); Mean Corpuscular Hemoglobin 31.9 pg (27.0-33.0); Mean Corpuscular Volume 93.8 fL (80-95); Mean Platelet Volume 8.8 fL (8.0-11.0); Platelet Count 343 x1000/uL (130-400); RBC 4.54 m/cumm (4.50-6.00); RBC Distribution Width 12.8 % (11.8-14.1); White Blood Cell Count 10.77 k/cumm (4.4-10.8)
[2019-09-10 06:47] LABS: ALT 48 U/L (16-63); AST 34 U/L (15-37); Albumin 2.8 g/dL (3.4-5.0); Alkaline Phosphatase 71 U/L (46-116); Anion Gap 9.4 mmol/L (3-11); BUN 13 mg/dL (7-18); Bilirubin, Total 0.9 mg/dL (0.2-1.0); CO2 25.6 mmol/L (21.0-32.0); CREATININE 0.98 mg/dL (0.70-1.30); Chloride 104 mmol/L (98-107); Glucose 100 mg/dL (74-106); Magnesium 2.2 mg/dL (1.8-2.4); PHOSPHORUS 2.5 mg/dL (2.6-4.7); Potassium 3.9 mmol/L (3.5-5.1); Sodium 139 mmol/L (136-145)
[2019-09-10] MEDS: ACETAMINOPHEN 1,000 MG/100 ML BTL 400 MG IVPB ×2 (06:48→17:14)
[2019-09-10] MEDS: Pantoprazole 40 MG VIAL IVP (07:50)
[2019-09-10] MEDS: MULTIVITAMIN 10 ML, THIAMINE 100 MG, FOLIC ACID 1 MG in DEXTROSE 5%-0.45% SALINE 1,000 ML 42 ML IV (09:52)
--- NOTE | 2019-09-10 11:41 | CMPROGNOTE_ITS ---
- If Service Date Differs Date of service: 09/10/19 Time of Service: 11:41 Care Management Progress Note S/O:Mike was sitting up in bed when CM met with him. Nursing asked CM to intervene because Mike was verbalizing that he wanted to leave AMA if he could not see his girlfriend. He shared with CM that they have never been apart this long and that he misses her. He said he feels like he is in residential and has not done anything wrong. Nursing reassured Mike that they would work with him to ambulate and progress as quickly as possible with a goal of early discharge. CM shared that appropriate supports would be put into place to make his transition home safe. When Dr. Gregorio met with Mike this afternoon, she advanced his diet and told him that if he tolerates the progression, it is possible he can be discharged tomorrow afternoon. Mike voiced his appreciation and satisfaction with the plan. A: Mike is a 54 year old man admitted to [facility] on 09/08/19 with a perforated viscus P:berhane will likely be discharged home, possibly with new home health services for wound care, if indicated. He will need to establish with a new PCP. Mike will transport with his girlfriend Linn via private vehicle. CM will continue to support patient, family and care team with discharge planning needs.
--- NOTE | 2019-09-10 12:52 | PGE_ITS ---
Date of Service Date of service: 09/10/19 Time of Service: 12:52 Assessment and Plan Assessment and plan (1) Perforated duodenal ulcer: Status: Acute Assessment and plan: He is making progress. WBC normalized. Kat removed Will progress to clear liquids this evening. We discussed the overall plan. Best case scenario is full liquids tomorrow am with transition to PO pain meds. If that goes well, then possible discharge tomorrow afternoon. He indicates understanding. Subjective Subjective Interval history since last seen: Pain med requirements are decreasing Is tolerating sips of clears Very eager to go home Exam Narrative Exam Narrative: Alert Abdomen soft. Blood present on upper aspect of dressing with small clot present on incision. No active bleeding. ZHANE drain serosanguinous. Objective Objective Clinical Data: Abnormal lab results 09/10/19 Range/Units 06:19 Phosphorus 2.5 L (2.6-4.7) mg/dL Albumin 2.8 L (3.4-5.0) g/dL Vital Signs Temperature 99.1 F 09/10/19 11:56 Temperature Source Tympanic 09/10/19 11:56 Pulse 76 09/10/19 11:56 Pulse Rhythm Regular 09/10/19 07:30 Pulse Strength Normal 09/08/19 15:57 Pulse 97 H 09/08/19 21:10 Respiratory Rate 18 09/10/19 11:56 Respiratory Effort Non-Labored 09/10/19 07:30 Respiratory Depth Normal 09/10/19 07:30 Respiratory Pattern Normal 09/10/19 07:30 Blood Pressure 158/100 H 09/10/19 11:56 Blood Pressure Mean 114 09/09/19 11:17 Blood Pressure Position Supine 09/09/19 08:22 Pulse Oximetry 97 09/10/19 11:56 Oxygen Delivery Method Room Air 09/10/19 11:56 Oxygen Flow Rate 0 09/10/19 11:56 Pain Level 0 09/10/19 11:56 Intake & Output 09/09/19 09/10/19 09/10/19 23:59 11:59 23:59 Intake Total 2099 / 0 1100 / 1100 Output Total 1670 / 3600 2515 / 2515 Balance 430 / -1400 -1415 / -1415 [place]ake: [place] [address] 1100 / 1100 Output: Drainage 15 / 15 Right Mid Abdomen 15 / 15 Urine 1650 / 3550 2500 / 2500 Other: Urine Color Yellow Yellow Urine Appearance Clear Clear Laboratory Results WBC 10.77 k/cumm (4.4-10.8) 09/10/19 06:19 RBC 4.54 m/cumm (4.50-6.00) 09/10/19 06:19 Hgb 14.5 g/dL (13.5-17.5) 09/10/19 06:19 Hct 42.6 % (40.0-50.0) 09/10/19 06:19 MCV 93.8 fL (80-95) 09/10/19 06:19 MCH 31.9 pg (27.0-33.0) 09/10/19 06:19 MCHC 34.0 g/dL (32.0-36.0) 09/10/19 06:19 RDW 12.8 % (11.8-14.1) 09/10/19 06:19 Plt Count 343 x1000/uL (130-400) 09/10/19 06:19 MPV 8.8 fL (8.0-11.0) 09/10/19 06:19 Immature Gran % 0.2 % 09/09/19 06:35 Neutrophils % 89.7 09/09/19 06:35 Lymphocytes % 5.1 09/09/19 06:35 Monocytes % 4.9 09/09/19 06:35 Eosinophils % 0.0 09/09/19 06:35 Basophils % 0.1 09/09/19 06:35 Absolute Neutrophils 12.65 k/cumm (1.2-6.7) H 09/09/19 06:35 Absolute Lymphocytes 0.72 k/cumm (1.2-3.4) L 09/09/19 06:35 Absolute Monocytes 0.69 k/cumm (0.11-0.7) 09/09/19 06:35 Absolute Eosinophils 0.00 k/cumm (0.0-0.7) 09/09/19 06:35 Absolute Basophils 0.01 k/cumm (0.0-0.2) 09/09/19 06:35 Sodium 139 mmol/L (136-145) 09/10/19 06:19 Potassium 3.9 mmol/L (3.5-5.1) 09/10/19 06:19 Chloride 104 mmol/L (98-107) 09/10/19 06:19 Carbon Dioxide 25.6 mmol/L (21.0-32.0) 09/10/19 06:19 Anion Gap 9.4 mmol/L (3-11) 09/10/19 06:19 BUN 13 mg/dL (7-18) 09/10/19 06:19 Creatinine 0.98 mg/dL (0.70-1.30) 09/10/19 06:19 Estimated GFR/1.73 m2 >= 60.00 (mL/min/1.73m2) 09/10/19 06:19 Glucose 100 mg/dL (74-106) 09/10/19 06:19 Lactate 2.2 mmol/L (0.6-1.4) H* 09/08/19 13:15 Calcium 9.0 mg/dL (8.5-10.1) 09/10/19 06:19 Phosphorus 2.5 mg/dL (2.6-4.7) L 09/10/19 06:19 Magnesium 2.2 mg/dL (1.8-2.4) 09/10/19 06:19 Total Bilirubin 0.9 mg/dL (0.2-1.0) 09/10/19 06:19 AST 34 U/L (15-37) 09/10/19 06:19 ALT 48 U/L (16-63) 09/10/19 06:19 Alkaline Phosphatase 71 U/L (46-116) 09/10/19 06:19 Troponin I < 0.05 ng/Ml (<0.06) 09/08/19 13:15 Total Protein 7.0 g/dL (6.4-8.2) 09/10/19 06:19 Albumin 2.8 g/dL (3.4-5.0) L 09/10/19 06:19 Lipase 129 U/L (73-393) 09/08/19 13:15 Urine Color Yellow (Yellow) 09/08/19 13:50 Urine Clarity Clear (Clear) 09/08/19 13:50 Urine pH 8.5 (5-8) H 09/08/19 13:50 Ur Specific [place] 1.020 (1.005-1.025) 09/08/19 13:50 Urine Protein 30 mg/dL (Negative) H 09/08/19 13:50 Urine Ketones Negative mg/dL (Negative) 09/08/19 13:50 Urine Blood Negative (Negative) 09/08/19 13:50 Urine Nitrite Negative (Negative) 09/08/19 13:50 Urine Bilirubin Negative (Negative) 09/08/19 13:50 Urine Urobilinogen 0.2 EU/dL (Up TO 0.2) 09/08/19 13:50 Ur Leukocyte Esterase Negative (Negative) 09/08/19 13:50 Urine RBC Negative HPF (0-2) 09/08/19 13:50 Urine WBC 0-2 HPF (0-5) 09/08/19 13:50 Ur Epithelial Cells Few HPF (Negative) 09/08/19 13:50 Urine Crystals Negative HPF (Negative) 09/08/19 13:50 Urine Bacteria Rare HPF (Negative) 09/08/19 13:50 Urine Casts Negative LPF (Negative) 09/08/19 13:50 Urine Mucus Moderate (Negative) 09/08/19 13:50 Ur Culture Indicated? No 09/08/19 13:50 Urine Glucose Negative mg/dL (Negative) 09/08/19 13:50 Patient ABO/Rh O Positive 09/08/19 16:00 Antibody Screen Negative 09/08/19 16:00
[2019-09-10] MEDS: Mylanta Suspension 30 ML CUP PO (21:05)
[2019-09-11] MEDS: PIPERACILLIN/TAZO 3.375 GM in Normal Saline 50 ML IVPB ×2 (02:07→08:16)
[2019-09-11 03:38] VITALS: O2SAT 96
[2019-09-11 04:11] VITALS: BP 156/99; PULSE 75; RESP 16; TEMP 37.1; O2SAT 94
--- NOTE | 2019-09-11 06:07 | ROE_ITS ---
DATE OF PROCEDURE September 08, 2019 PREOPERATIVE DIAGNOSIS Perforated viscus. POSTOPERATIVE DIAGNOSIS Perforated duodenal ulcer. PROCEDURE Laparotomy with oversewing of duodenal ulcer and Philip patch. SURGEON Anjelica Gregorio M.D. ANESTHESIA Local and general. INDICATIONS: This is a 54-year-old man with two days of abdominal pain that abruptly worsened today. He presented to the Emergency Department, where he was found to have an elevated white blood cell count, localized peritonitis and evidence of inflammation in the vicinity of the distal stomach and duodenum on CT scan. There were also droplets of free air. The patient was taken to the Operating Room for a presumed perforated ulcer. He has been taking a lot of ibuprofen for a toothache and also drinks alcohol regularly. PROCEDURE The patient placed supine on the operating table and after induction of general anesthetic had a Kat catheter placed. His abdomen was then prepped and draped sterilely. 0.25% Marcaine was infiltrated into the upper midline and then the upper midline incision made. Subcutaneous tissue was divided with cautery. The peritoneum was entered sharply. There was cloudy fluid present in the right upper quadrant, which was cultured and then suctioned free. Inspection of the distal stomach and duodenum revealed some inflammatory changes, as well as an area of two small perforations adjacent to one another that were leaking bilious fluid. The perforations themselves were fairly small, measuring about 3 or 4 millimeters and were located about a centimeter apart with some very thin tissue in between them. The site of the perforation was closed with interrupted #2-0 Silk sutures. Some omentum was then mobilized from the transverse colon and tied over the perforation closure with the tail ends of the #2-0 Silk sutures. The abdomen was irrigated and suctioned clean. A 10 flat Kendrick Colin drain was brought out through the right upper quadrant and placed at the site of the repair. The NG tube was guided into the stomach when placed by Anesthesia. There was good hemostasis, so the fascia was closed with a #1 PDS, one from the bottom and one from the top and tied in the middle. 20 cc of Exparel diluted in 20 cc of normal saline were injected in 1 cm intervals using 1 cc in each location. The skin was then closed with lizandro. He tolerated the procedure well and was stable to the Intensive Care Unit.
[2019-09-11 07:23] VITALS: BP 173/105; PULSE 84; RESP 18; TEMP 37.1; O2SAT 94
[2019-09-11 08:15] VITALS: O2SAT 94
[2019-09-11] MEDS: Pantoprazole 40 MG VIAL IVP (08:16)
[2019-09-11] MEDS: Normal Saline Flush 10 ML SYR IVP (08:16)
[2019-09-11] MEDS: ACETAMINOPHEN 1,000 MG/100 ML BTL 400 MG IVPB (09:35)
--- NOTE | 2019-09-11 10:42 | DSE_ITS ---
Date of service: 09/11/19 Time of Service: 10:43 DS: Diagnosis Discharge Diagnosis (1) Perforated duodenal ulcer: Status: Acute Discharge Plan Disposition Patient Disposition: HOME Condition: Improving Discharge Details Chief Complaint: Abd Prob Clinical Impression: Perforated abdominal viscus Reason For Visit: PERFORATED Duodenal ulcer Admit Date/Time: 09/08/19 17:04 Admit Provider: Anjelica Gregorio Attending Provider: Anjelica Gregorio Primary Care Provider: None,None ED Provider: Corwin Juan Hospital Course Hospital Course: The patient was taken to the operating room on the day of admission for laparotomy. A small perforated duodenal ulcer was identified and oversewn. He tolerated the procedure well and was kept overnight in the intensive care. [facility]. His NG tube had partially come out so was completely removed. He did have a drain that remained serosanguineous through the hospitalization and was removed on the day of discharge. The patient's white blood cell count normalized. He was kept on Protonix and Zosyn postop. Fluid cultures only grew thomas. His hemoglobin remained stable. He did have a small amount of bleeding from the upper aspect of the incision that had resolved on the day of discharge. He was tolerating a liquid diet and had adequate pain control. His abdomen was soft to examination and he was afebrile. Stool for H. pylori is pending. The patient was noted to be hypertensive which is likely chronic and will be directed to follow-up with primary care. He did not show any signs of alcohol withdrawal. Home Meds and New Rx's Prescriptions: New hydrocodone-acetaminophen 5-325 mg Tablet 1 - 2 tab PO Q6H PRN PRNQty: 20 RF: 0 lansoprazole 30 mg tablet,disintegrat, delay rel 30 mg PO BID Qty: 60 RF: 1 amoxicillin-pot clavulanate [Augmentin] 875-125 mg tablet 1 tab PO BID Qty: 4 RF: 0 Discharge Instructions Additional Instructions: A small amount of drainage is expected from the upper incision and drain site. Keep covered with a dry dressing as needed. It is okay to shower today. Do not swim or soak in a tub for two weeks Call for any concerns including fever, increased pain, vomiting, incision redness or major drainage. Do not lift more than 15 pounds for four weeks. Walking and stairs are fine. Do not drive if on narcotic pain meds or if limited by pain. May use Tylenol for pain control if not taking the Vicodin. Ice is also an option. The maximum dose for Tylenol is 4000 mg/day. If concerned about constipation, you may use a stool softener or milk of magnesia. Do not take any ibuprofen, Aleve, Advil, aspirin. Avoid alcohol. Please make an appointment with a primary care provider RAISA for treatment of elevated blood pressure. Take antacids as prescribed! Referrals: Anjelica Gregorio MD [ [facility] STAFF PHYSICIAN] - (Return in one week for staple removal) Activity:: DO not lift more than 15 pounds for 4 weeks Equipment/Supplies:: No Equipment Needed Diet:: Soft diet for one week Discharge Orders Discharge Orders: Discharge Order (Routine); Ordered 09/11/19 Ordered By: Anjelica Gregorio DS: Summary Status at Discharge Functional status at discharge: independent ambulation Overall status at discharge: patient is progressing back to baseline Mental Status: mental status grossly normal Speech and Movement: speech and movement normal Mood: congruent mood Affect: normal affect Exam Psych Mental Status: mental status grossly normal Speech and Movement: speech and movement normal Mood: congruent mood Affect: normal affect DS: Data Vitals/I&O Vitals and I&O: Vital Signs Temperature 98.8 F 09/11/19 07:23 Temperature Source Temporal Artery Scan 09/11/19 07:23 Pulse 84 09/11/19 07:23 Pulse Rhythm Regular 09/11/19 02:26 Pulse Strength Normal 09/08/19 15:57 Pulse 97 H 09/08/19 21:10 Respiratory Rate 18 09/11/19 07:23 Respiratory Effort Non-Labored 09/11/19 02:26 Respiratory Depth Normal 09/11/19 02:26 Respiratory Pattern Normal 09/11/19 02:26 Blood Pressure 173/105 H 09/11/19 07:23 Blood Pressure Mean 114 09/09/19 11:17 Blood Pressure Position Supine 09/09/19 08:22 Pulse Oximetry 94 L 09/11/19 08:15 Oxygen Delivery Method Room Air 09/11/19 08:15 Oxygen Flow Rate 0 09/11/19 08:15 Pain Level 4 09/11/19 07:23 Intake & Output 09/10/19 09/10/19 09/11/19 11:59 23:59 11:59 Intake Total 1200 / 2657.1 1457.1 / 2657.1 760 / 760 Output Total 2515 / 3140 625 / 3140 Balance -1315 / -482.9 832.1 / -482.9 750 / 750 Intake: IV 1200 / 1577.1 377.1 / 1577.1 50 / 50 Oral 1080 / 1080 710 / 710 Output: Drainage Right Mid Abdomen Urine 2500 / 3100 600 / 3100 Other: Urine Color Yellow Yellow Yellow Urine Appearance Clear Clear Clear Urine Odor None None Comment Denies any urinary issues Voiding Methods Toilet Toilet Data Completed and Pending Labs on day of discharge: Preliminary micro results at discharge 09/08/19 18:12 Surgical Culture - Preliminary Peritoneal Gram Positive Thomas,Mixed PFSH Medical History TBI (traumatic brain injury) (Chronic) Surgical History No significant past surgical history (Acute) Family History Mother , Glialblastoma No problems noted. Father Mental disorder Situational depression (s/p trauma) Son No problems noted. Son No problems noted. Son No problems noted. Paternal Grandmother , Old age at age 92. No problems noted. Paternal Grandfather , Old age at age 92. No problems noted. Maternal Grandmother , CVA at age 80. No problems noted. Maternal Grandfather , [place] at age 76. No problems noted. Social History Smoking/Tobacco Use Status: Current every day Tobacco Type: e-cigarettes Alcohol Intake: current Alcohol Intake frequency: 3 or more drinks per day Alcohol type: beer Drug use: Occasionally Substance use type: marijuana Do you feel safe at home: Yes Do you feel safe in your relationship?: Yes
[2019-09-11 11:00] VITALS: BP 162/100; RESP 18; TEMP 37.2; O2SAT 95
[2019-09-11] MEDS: HYDROcodone 5/Acetaminophen 325 TAB PO (11:49)
== END 2019-09-11 11:55 | disposition home or self-care (01) | DRG 328 ==
LOC: ER 16:48 → ICU 20:31 → MS 09-09 15:35
PROVIDERS: Admitting Provider Surgery; Emergency Provider Emergency Medicine; Visit Provider Surgery
PROC: 0DQ90ZZ Repair Duodenum, Open Approach (ICD-10-PCS; CPT 49000; principal; 2019-09-08 16:45)
DX: K26.5 Chronic or unspecified duodenal ulcer with perforation (principal); F17.210 Nicotine dependence, cigarettes, uncomplicated; Z87.820 Personal history of traumatic brain injury; I10 Essential (primary) hypertension
CPT/HCPCS: 43840; 36415; 71045; 80048; 80053; 83690; 85027; 86850; 86900; 86901; 87077; 93005; 96361; 96365; 96375; 99223; 99238; 99291; NC; 74177; 81003; 81015; 83605; 83735; 84100; 84484; 85025; 87070; 87186; 87205; 93010; J0131; J0295; J1100; J1885; J2060; J2405; J2543; J3490

== ENCOUNTER 2020-03-26 01:40 | Outpatient (CLI) | payer MEDICAID, SELFPAY ==
[2020-03-27 20:24] LABS: COVID-19 RT-PCR Result NEGATIVE (Negative)
== END 2020-03-26 02:00 ==
PROVIDERS: PCP Nurse Practitioner Family; Visit Provider Surgery
DX: Z11.59 Encounter for screening for other viral diseases (principal); Z01.818 Encounter for other preprocedural examination
CPT/HCPCS: U0003

== ENCOUNTER 2020-03-29 09:54 | Day surgery (SDC) | payer MEDICAID, SELFPAY ==
[2020-03-29 10:09] VITALS: BP 177/101; PULSE 99; RESP 16; TEMP 36.6; O2SAT 97
[2020-03-29] MEDS: Lactated Ringers 1,000 ML 80 ML IV (10:31)
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
--- NOTE | 2020-03-29 11:39 | W.PM.DSUDISC ---
Discharge Plan Disposition Patient Disposition: HOME Condition: Good Discharge Details Reason For Visit: EGD Attending Provider: Anjelica Gregorio Primary Care Provider: Nathaly Suh Home Meds and New Rx's Prescriptions: New lansoprazole 30 mg tablet,disintegrat, delay rel 30 mg PO DAILY Qty: 90 RF: 3 Continued hydrochlorothiazide 12.5 mg tablet 12.5 mg PO DAILY AM Qty: 90 RF: 3 Discontinued lansoprazole 30 mg capsule,delayed release(DR/EC) 30 mg PO BID Qty: 60 RF: 2 Discharge Instructions Additional Instructions: Findings: The duodenal ulcer has healed. There is still mild inflammation in the stomach and duodenum. Continue to take a daily antacid. Please call if you develop: fevers >101.5 Nausea or Vomiting Abdominal/chest pain that is not transient DAY SURGERY UNIT POST EGD INSTRUCTIONS 1. Because there will be medication in your system for the next 24 hours, you may feel a little sleepy. Your coordination will be affected. Therefore: a. Do not drive or operate dangerous equipment for 24 hours. b. Do not drink alcohol beverages for 24 hours (not even beer). c. Plan to go home and rest for the day. 2. Generally there are no restrictions on your activity after a day or so has gone by, but you may feel a bit fatigued for a few days. 3 After you arrive home you may have a light meal and return to a normal diet as you can tolerate it without feeling sick to your stomach. 4. After surgery, you may feel pain or discomfort. This should be only transient, but if it persists please contact your doctor. 5. If there are any questions regarding the findings of your procedure, please feel free to contact your doctor. 6. If you are unable to contact your doctor with a problem, contact the hospital at [phone]. 7. Continue all your regular medications unless directed otherwise. I understand the above instructions and have no questions. Signature of Patient or Responsible Adult Escort Date/Time Name of Responsible Adult Escort Signature of Nurse Date/Time Activity:: Activity as Tolerated Diet:: As Tolerated Discharge Orders Discharge Orders: Discharge Order (Routine); Ordered 03/29/20 Ordered By: Anjelica Gregorio DS: Diagnosis Discharge Diagnosis (1) Gastritis and duodenitis: Status: Acute
--- NOTE | 2020-03-29 11:40 | W.PM.ENDDOP ---
Date of service: 03/29/20 Time of Service: 12:11 Endoscopy Report DATE OF PROCEDURE: 03/29/20 PRE-OP DIAGNOSIS: Perforated duodenal ulcer POST-OP DIAGNOSIS: other (Mild gastritis and duodenitis) PROCEDURE: EGD with gastric biopsy SURGEON: Anjelica Gregorio ANESTHESIA: MAC INDICATIONS: This 54 year old man had laparotomy for perforated duodenal ulcer in August. He presents for follow up EGD. PROCEDURE DESCRIPTION: The patient was placed in the left lateral position and propofol titrated to sedation. The endoscope was advanced into the esophagus under direct visualization. The scope was passed through the stomach and into the duodenum. The repair site was visible in the duodenal bulb with some silk sutures identified. There was no residual ulcer. The duodenum had mild duodenitis. The stomach showed mild antral gastritis. Retroflexed view of the fundus and lesser curvature was normal. Routine biopsies were taken from the gastric antrum. The GE junction was inspected and showed no significant stricture, inflammation, masses or Barretts. The scope was slowly withdrawn with no other esophageal lesions found. The patient tolerated the procedure well and was stable to recovery. Will reduce his PPI dose to once daily.
--- NOTE | 2020-03-29 11:55 | STOM_PTH ---
PATIENT: Roland Terrazas V LOC: [facility] U#:[id number] AGE/SX: 54/M ROOM: RE03/29/[address]: Anjelica Gregorio MD : 1965 BED: DIS: 03/29/2020 SPEC #: [id number] RECD: 03/29/20 13:17 STATUS: DANNY REQ #: [id number] SHARMAINE: 03/29/20 11:[address]: Anjelica Gregorio DEPT: Surgical Specimen RECD BY: Christine Martin ENTERED: 03/29/20 13:18 SP TYPE: STOMACH OTHR DR: Nathaly Suh APRN Tissues: 1 - STOMACH BIOPSY Procedures: GROSS AND MICRO LEVEL 4 Comments: [id number]
[2020-03-29 12:44] VITALS: BP 169/95; PULSE 76; RESP 18; TEMP 36.5; O2SAT 96
== END 2020-03-29 13:22 | disposition home or self-care (01) ==
PROVIDERS: PCP Nurse Practitioner Family; Visit Provider Surgery
PROC: 0DJ68ZZ Inspection of Stomach, Via Natural or Artificial Opening Endoscopic (ICD-10-PCS; CPT 43235; principal; 2020-03-29 11:30)
DX: K29.80 Duodenitis without bleeding (principal); K29.70 Gastritis, unspecified, without bleeding; I10 Essential (primary) hypertension; F10.10 Alcohol abuse, uncomplicated
CPT/HCPCS: 43239; 88305; NC; J2001; J2704

== ENCOUNTER 2020-08-02 02:53 | Outpatient (CLI) | payer MEDICAID, SELFPAY ==
[2020-08-02 14:22] LABS: Anion Gap 10.4 mmol/L (3-11); BUN 12 mg/dL (7-18); CO2 27.6 mmol/L (21.0-32.0); CREATININE 0.9 mg/dL (0.70-1.30); Calcium 9.3 mg/dL (8.5-10.1); Chloride 104 mmol/L (98-107); Glucose 94 mg/dL (74-106); Sodium 142 mmol/L (136-145)
== END 2020-08-02 02:54 | disposition home or self-care (01) ==
LOC: LBO 02:53
PROVIDERS: PCP Nurse Practitioner Family; Visit Provider Nurse Practitioner Family
DX: I10 Essential (primary) hypertension (principal)
CPT/HCPCS: 36415; 80048; 84443

== ENCOUNTER 2020-11-13 03:27 | Outpatient (CLI) | payer MEDICAID, SELFPAY ==
[2020-11-13 10:16] LABS: HCT 48.6 % (40.0-50.0); HGB 16.5 g/dL (13.5-17.5); MCV 91.4 fL (80-95); MPV 8.8 fL (8.0-11.0); Platelet Count 314 10^3/uL (130-400); RBC 5.32 10^6/uL (4.36-5.78); RDW 12.6 % (11.8-14.1); RDW-SD 42.6 fL; WBC 5.79 10^3/uL (4.4-10.8)
[2020-11-13 10:21] LABS: Prothrombin Time 9.7 sec (9.3-11.0)
[2020-11-13 11:15] LABS: ALT 151 U/L (16-63); AST 108 U/L (15-37); Alkaline Phosphatase 131 U/L (46-116); Anion Gap 8.6 mmol/L (3-11); BUN 12 mg/dL (7-18); Bilirubin, Total 0.6 mg/dL (0.2-1.0); CO2 29.4 mmol/L (21.0-32.0); CREATININE 0.9 mg/dL (0.70-1.30); Calcium 9.4 mg/dL (8.5-10.1); Calculated LDL 178 mg/dL (<100); Chloride 103 mmol/L (98-107); Cholesterol 269 mg/dL (<200); Glucose 104 mg/dL (74-106); HDL Cholesterol 64 mg/dL (40-60); Potassium 4.6 mmol/L (3.5-5.1); Sodium 141 mmol/L (136-145); Total Protein 7.3 g/dL (6.4-8.2); Triglyceride 135 mg/dL (<150)
[2020-11-14 11:05] LABS: HIV-1/2 Ag & Ab Screen Negative (Negative)
[2020-11-14 11:22] LABS: Hepatitis C Ab w Rflx HCV PCR Negative (Negative)
== END 2020-11-13 03:28 | disposition home or self-care (01) ==
LOC: LBO 03:27
PROVIDERS: PCP Nurse Practitioner Family; Visit Provider Nurse Practitioner Family
DX: I10 Essential (primary) hypertension (principal); F10.10 Alcohol abuse, uncomplicated; Z13.220 Encounter for screening for lipoid disorders; K76.0 Fatty (change of) liver, not elsewhere classified; Z11.59 Encounter for screening for other viral diseases; Z11.4 Encounter for screening for human immunodeficiency virus [HIV]
CPT/HCPCS: 36415; 80053; 80061; 85027; 86803; 87389; 85610

== ENCOUNTER 2020-11-15 10:33 | Outpatient (CLI) | payer MEDICAID, SELFPAY ==
--- NOTE | 2020-11-15 10:30 | RT.EKG_ITS ---
APPROVED REPORT Exam: Resting ECG Reason for Exam: Baseline Patient Location: O HR:89 bpm ECG Measurements Heart Rate 89 AXIS WV 127 P 71 QRSd 91 QRS 72 QT 369 T 56 QTc 449 Conclusion Sinus rhythm...normal P axis, V-rate 60- 99 Probable left atrial enlargement...P >50mS, <-0.10mV V1
== END 2020-11-15 10:34 | disposition home or self-care (01) ==
LOC: DI.KIM 10:33
PROVIDERS: PCP Nurse Practitioner Family; Visit Provider Nurse Practitioner Family
DX: I10 Essential (primary) hypertension (principal)
CPT/HCPCS: 93010

== ENCOUNTER 2021-09-03 02:27 | Outpatient (CLI) | payer MEDICAID, SELFPAY ==
[2021-09-03 11:40] LABS: Abs Immature Grans 0.01 10^3/uL (0.0-0.06); Absolute Basophil Count 0.04 10^3/uL (0.0-0.2); Absolute Eosinophil Count 0.05 10^3/uL (0.0-0.7); Absolute Lymphocyte Count 1.96 10^3/uL (1.2-3.4); Absolute Monocyte Count 0.55 10^3/uL (0.1-0.8); Basophils % 0.7; Eosinophils % 0.8; HCT 44.7 % (40.0-50.0); HGB 15.2 g/dL (13.5-17.5); Immature Grans % 0.2; Lymphocytes % 33.2; MCH 32.3 pg (27.0-33.0); MCV 94.9 fL (80-95); MPV 8.7 fL (8.0-11.0); Monocytes % 9.3; Neutrophils % 55.8; Nucleated RBC 0 %; Platelet Count 287 10^3/uL (130-400); RBC 4.71 10^6/uL (4.36-5.78); RDW 11.8 % (11.8-14.1); RDW-SD 41.5 fL; WBC 5.91 10^3/uL (4.4-10.8)
[2021-09-03 12:18] LABS: Iron 226 ug/dL (65-175); Total Iron Binding Capacity 362 ug/dL (250-450); Transferrin Sat 62 % (20-55)
[2021-09-03 12:30] LABS: ALT 68 U/L (16-63); AST 68 U/L (15-37); Albumin 4.2 g/dL (3.4-5.0); Alkaline Phosphatase 95 U/L (46-116); Anion Gap 9.5 mmol/L (3-11); BUN 19 mg/dL (7-18); Bilirubin, Total 0.6 mg/dL (0.2-1.0); CO2 26.5 mmol/L (21.0-32.0); Calcium 8.9 mg/dL (8.5-10.1); Chloride 104 mmol/L (98-107); Ferritin 203 ng/mL (26-388); Glucose 87 mg/dL (74-106); Potassium 4.5 mmol/L (3.5-5.1); Sodium 140 mmol/L (136-145)
[2021-09-04 08:16] LABS: HBs Antibody, Quant <3.1 mIU/mL (See Note); Hepatitis B Surface Ab Negative (See Note)
[2021-09-04 08:29] LABS: Hepatitis B Surface Ag Negative (Negative)
[2021-09-04 09:46] LABS: Hep A Total Ab w Rflx IgM Negative (Negative)
== END 2021-09-03 02:28 | disposition home or self-care (01) ==
LOC: LBO 02:27
PROVIDERS: PCP Nurse Practitioner Family; Visit Provider Nurse Practitioner Family
DX: K76.0 Fatty (change of) liver, not elsewhere classified (principal); I10 Essential (primary) hypertension
CPT/HCPCS: 36415; 80053; 86706; 86709; 87340; 82728; 83540; 83550; 85025

== ENCOUNTER 2021-09-26 11:29 | Outpatient (REF) | payer MEDICAID, SELFPAY ==
[2021-09-29 10:47] LABS: Hep B Core Antibody Negative (Negative)
== END 2021-09-26 11:30 | disposition home or self-care (01) ==
LOC: LBN 11:29
PROVIDERS: PCP Nurse Practitioner Family; Visit Provider Nurse Practitioner Family
DX: K76.0 Fatty (change of) liver, not elsewhere classified (principal)
CPT/HCPCS: 86704

== ENCOUNTER 2023-03-05 01:50 | Outpatient (CLI) | payer MEDICAID, SELFPAY ==
[2023-03-05 11:20] LABS: Abs Immature Grans 0.02 10^3/uL (0.0-0.06); Absolute Basophil Count 0.05 10^3/uL (0.0-0.2); Absolute Eosinophil Count 0.08 10^3/uL (0.0-0.7); Absolute Lymphocyte Count 1.45 10^3/uL (1.2-3.4); Absolute Monocyte Count 0.93 10^3/uL (0.1-0.8); Absolute Neutrophil Count 3.87 10^3/uL (1.2-6.7); Basophils % 0.8; Eosinophils % 1.3; HCT 45.9 % (40.0-50.0); HGB 15.2 g/dL (13.5-17.5); Immature Grans % 0.3; Lymphocytes % 22.7; MCH 30.8 pg (27.0-33.0); MCHC 33.1 % (32.0-36.0); MCV 93 fL (80-95); MPV 8.6 fL (8.0-11.0); Monocytes % 14.5; Neutrophils % 60.4; Platelet Count 247 10^3/uL (130-400); RBC 4.94 10^6/uL (4.36-5.78); RDW-SD 41.1 fL
[2023-03-05 11:29] LABS: INR 0.9 (0.9-1.1); Prothrombin Time 9.5 sec (9.3-11.0)
[2023-03-05 12:04] LABS: ALT 115 U/L (16-63); AST 163 U/L (15-37); Albumin 3.6 g/dL (3.4-5.0); Alkaline Phosphatase 179 U/L (46-116); Anion Gap 8.8 mmol/L (3-11); BUN 9 mg/dL (7-18); Bilirubin, Total 0.4 mg/dL (0.2-1.0); CO2 29.2 mmol/L (21.0-32.0); Calcium 9.8 mg/dL (8.5-10.1); Calculated LDL 174 mg/dL (<100); Chloride 100 mmol/L (98-107); Cholesterol 282 mg/dL (<200); Estimated GFR 87.24 (mL/min/1.73m2); Ferritin 111 ng/mL (26-388); Glucose 119 mg/dL (74-106); HDL Cholesterol 79 mg/dL (40-60); Potassium 4.5 mmol/L (3.5-5.1); Sodium 138 mmol/L (136-145); Triglyceride 147 mg/dL (<150)
[2023-03-05 12:07] LABS: Iron 81 ug/dL (65-175); Total Iron Binding Capacity 375 ug/dL (250-450); Transferrin Sat 22 % (20-55)
== END 2023-03-05 01:51 | disposition home or self-care (01) ==
LOC: LBO 01:51
PROVIDERS: PCP Nurse Practitioner Family; Referring Provider Nurse Practitioner Family; Visit Provider Nurse Practitioner Family
DX: I10 Essential (primary) hypertension (principal); E78.5 Hyperlipidemia, unspecified; K76.0 Fatty (change of) liver, not elsewhere classified; R23.3 Spontaneous ecchymoses; R79.89 Other specified abnormal findings of blood chemistry
CPT/HCPCS: 36415; 80053; 80061; 82728; 83540; 83550; 85025; 85610

== ENCOUNTER 2023-07-13 16:33 | Outpatient (REF) | payer MEDICAID, SELFPAY | END 2023-07-13 16:34 | disposition home or self-care (01) | LOC: LBN 16:33 | PROVIDERS: PCP Student in an Organized Health Care Education/Training Program; Visit Provider Registered Nurse Maternal Newborn | DX: H60.332 Swimmer's ear, left ear (principal); H60.8X2 Other otitis externa, left ear | CPT/HCPCS: 87070 ==

== ENCOUNTER 2023-11-22 14:39 | Inpatient (IN) | payer MEDICAID, SELFPAY ==
[2023-11-22 14:42] VITALS: BP 127/76; PULSE 83; RESP 18; TEMP 36.6; O2SAT 97
--- NOTE | 2023-11-22 14:45 | DI.RAD_ITS ---
Exam(s) XR HIP RT COMPLETE AP PELVIS EXAM: XR HIP RT COMPLETE AP PELVIS CLINICAL HISTORY: right hip pain. TECHNIQUE: 2D digital imaging was performed. COMPARISON: No exams were available for comparison FINDINGS: 3 views There is an acute displaced intertrochanteric fracture of the right hip. No hip joint space narrowin g. No dislocation. Opposite-left hip appears unremarkable as does the remainder of the bony pelvis. IMPRESSION: Displaced angulated right hip intertrochanteric fracture. DATA REPOSITORY: RADIATION DOSE DELIVERED:
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
[2023-11-22] MEDS: Acetaminophen 500 MG TAB 1000 MG PO (14:55)
[2023-11-22 16:05] LABS: Abs Immature Grans 0.03 10^3/uL (0.0-0.06); Absolute Basophil Count 0.02 10^3/uL (0.0-0.2); Absolute Lymphocyte Count 1.03 10^3/uL (1.2-3.4); Absolute Monocyte Count 0.81 10^3/uL (0.1-0.8); Absolute Neutrophil Count 4.26 10^3/uL (1.2-6.7); Basophils % 0.3 %; Immature Grans % 0.5 %; Lymphocytes % 16.7 %; MCHC 33.3 % (32.0-36.0); MCV 99 fL (80-95); MPV 9.9 fL (8.0-11.0); Monocytes % 13.2 %; Neutrophils % 69.3 %; Platelet Count 165 10^3/uL (130-400); RBC 3.33 10^6/uL (4.36-5.78); RDW 12.8 % (11.8-14.1); RDW-SD 45.7 fL; WBC 6.15 10^3/uL (4.4-10.8)
[2023-11-22 16:18] LABS: PTT Activated 29.6 sec (23.6-32.8); Prothrombin Time 9.7 sec (9.1-11.1)
[2023-11-22 16:20] LABS: ALT 137 U/L (16-63); AST 272 U/L (15-37); Albumin 3.4 g/dL (3.4-5.0); Alkaline Phosphatase 204 U/L (46-116); Anion Gap 18.5 mmol/L (3-11); BUN 37 mg/dL (7-18); Bilirubin, Total 3.3 mg/dL (0.2-1.0); CO2 22.5 mmol/L (21.0-32.0); CREATININE 2.8 mg/dL (0.70-1.30); Calcium 8.3 mg/dL (8.5-10.1); Chloride 96 mmol/L (98-107); Glucose 83 mg/dL (74-106); Potassium 4.7 mmol/L (3.5-5.1); Sodium 137 mmol/L (136-145); Total Protein 7.4 g/dL (6.4-8.2)
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
[2023-11-22] MEDS: MORPHine 4 MG/ML SYR IVP (18:18)
[2023-11-22 18:31] VITALS: BP 132/81; PULSE 82; RESP 20; TEMP 36.8; O2SAT 94
[2023-11-22 19:39] VITALS: BP 124/73; PULSE 72; RESP 19; TEMP 36.2; O2SAT 93
[2023-11-22] MEDS: Lactated Ringers 1,000 ML 1000 ML IV (20:07)
[2023-11-22] MEDS: oxyCODONE 5 MG TAB PO (20:11)
[2023-11-22 20:39] VITALS: BP 124/73; PULSE 72; RESP 17; TEMP 36.2; O2SAT 93
[2023-11-22] MEDS: Nicotine 14 MG/24 HR PATCH TD (21:32)
[2023-11-22 23:33] VITALS: BP 122/81; PULSE 79; RESP 15; TEMP 37; O2SAT 92
[2023-11-23] VITALS (20 sets, daily range): BP systolic 100–187; BP diastolic 70–110; PULSE 81–131; RESP 15–24; TEMP 36.4–37.3; O2SAT 93–100; BMI 22.1
[2023-11-23] MEDS: oxyCODONE 5 MG TAB PO ×2 (00:05→19:57)
[2023-11-23] MEDS: Lactated Ringers 1,000 ML 999 ML IV (06:09)
[2023-11-23 07:03] LABS: HCT 29.9 % (40.0-50.0); HGB 9.9 g/dL (13.5-17.5); MCH 32.9 pg (27.0-33.0); MCHC 33.1 % (32.0-36.0); MCV 99 fL (80-95); MPV 9.8 fL (8.0-11.0); Platelet Count 149 10^3/uL (130-400); RBC 3.01 10^6/uL (4.36-5.78); RDW 12.6 % (11.8-14.1); RDW-SD 45.3 fL; WBC 3.82 10^3/uL (4.4-10.8)
[2023-11-23 07:26] LABS: Anion Gap 16.1 mmol/L (3-11); BUN 42 mg/dL (7-18); CO2 23.9 mmol/L (21.0-32.0); CREATININE 2.2 mg/dL (0.70-1.30); Calcium 8.1 mg/dL (8.5-10.1); Chloride 100 mmol/L (98-107); Estimated GFR 33.66 (mL/min/1.73m2); Glucose 95 mg/dL (74-106); Potassium 4.2 mmol/L (3.5-5.1); Sodium 140 mmol/L (136-145)
[2023-11-23] MEDS: Thiamine 100 MG TAB PO (08:03)
[2023-11-23] MEDS: Nicotine 14 MG/24 HR PATCH TD (08:03)
[2023-11-23] MEDS: LORazepam 1 MG TAB PO/SL ×4 (08:03→20:11)
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
[2023-11-23] MEDS: MULTIVITAMIN 10 ML, THIAMINE 100 MG, FOLIC ACID 1 MG in DEXTROSE 5%-0.45% SALINE 1,000 ML 42 ML IV (09:10)
--- NOTE | 2023-11-23 10:49 | W.NUTRFU ---
Date of service: 11/23/23 Time of Service: 10:49 Nutrition Note NOTE: surgical pt - 58yo male with closed fx of R hip. Currently NPO. weight stable. Pt with hx of etoh use disorder - given mvi, thiamin, folate. Pt being treated for anemia. Pt currently at moderate risk of nutrition deficiencies with etoh use. will monitor for diet toleration once po intake resumes. Time Spent in Nutritional Counseling and Treatment: 0
[2023-11-23 13:11] LABS: BUN 37 mg/dL (7-18); CREATININE 1.7 mg/dL (0.70-1.30); Calcium 8.3 mg/dL (8.5-10.1); Chloride 101 mmol/L (98-107); Estimated GFR 45.86 (mL/min/1.73m2); Glucose 106 mg/dL (74-106); Sodium 140 mmol/L (136-145)
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
--- NOTE | 2023-11-23 16:50 | W.PM.PROGNOT ---
Date of Service Date of service: 11/23/23 Time of Service: 12:05 Assessment and Plan Assessment and plan (1) Fracture, intertrochanteric, right femur: Status: Acute Assessment and plan: Plan for intramedullary fixation about the right hip today. Once again I reviewed the surgery with him. I discussed the risks include bleeding, infection, pain, stiffness, hardware prominence, hardware failure, malunion, nonunion, need for repeat procedures, blood clot. Despite these risk, he elects to proceed. (2) Tobacco use disorder: Status: Chronic Assessment and plan: Continue nicotine supplementation per patient request (3) Alcohol use disorder: Status: Chronic Assessment and plan: Continue on alcohol withdrawal scale. (4) Acute kidney injury: Status: Acute Assessment and plan: Creatinine has improved with the fluid boluses. I will have him on maintenance fluid supplemented with thiamine and folate given his chronic alcoholism and likely malnutrition. Subjective Subjective Interval history since last seen: Ed reports having good pain control overnight. No acute signs changes. No tremors. No headaches. No vision changes. No chest pain or shortness of breath. Exam Narrative Exam Narrative: Sitting up in the bed and working on his computer. No acute distress. Alert and orient x 3. Right lower extremity is externally rotated and shortened. No change to the skin about the right hip or leg. Objective Last Vital Signs Temp 37.1 C 11/23/23 15:40 Pulse 131 H 11/23/23 15:40 Resp 19 11/23/23 15:40 BP 116/95 H 11/23/23 15:40 Pulse Ox 94 11/23/23 15:40 Laboratory Results - last 24 hr 11/23/23 11/23/23 06:25 12:47 WBC 3.82 L RBC 3.01 L Hgb 9.9 L Hct 29.9 L MCV 99 H MCH 32.9 MCHC 33.1 RDW 12.6 Plt Count 149 MPV 9.8 Sodium 140 140 Potassium 4.2 4.0 Chloride 100 101 Carbon Dioxide 23.9 25.0 Anion Gap 16.1 H 14.0 H BUN 42 H 37 H Creatinine 2.2 H 1.7 H Est GFR (CKD-EPI 2020) 33.66 45.86 Glucose 95 106 Calcium 8.1 L 8.3 L PAWSS Have you Been Recently Intoxicated or Drunk Within the Last 30 days?: Yes Have you Ever Experienced Previous Episodes of Alcohol Withdrawal?: No Have you ever Experienced Withdrawal Seizures?: No Have you ever Experienced Delirium Tremens(DT)s?: No Have you ever undergone Alcohol Rehabilitation Treatment (i.e, inpt ot outpatient treatment programs)?: No Have you ever Experienced Blackouts?: No Have you ever Combined Alcohol with other Downers within the last 90 days?: No Have you ever Combined Alcohol with any other Substance of Abuse during the last 90 days?: Yes Positive Blood Alcohol level on Presentation? [PCS.BAL]: No Evidence of Increased Autonomic Activity (i.e. HR>120, tremor, sweating, agitation, nausea)?: Yes Result: 4 Time Spent with Patient Time Spent with Patient: 25-34 minutes Time was spent: preparing to see the patient(eg.review tests), indepentently interpreting results and counseling the patient
[2023-11-23] MEDS: Lactated Ringers 1,000 ML 30 ML IV (17:21)
[2023-11-23] MEDS: ceFAZolin 2 GM/50 ML BAG 100 GM (17:21)
[2023-11-23] MEDS: TRANEXAMIC ACID/SOD. CHL. 1,000 MG/100 ML BAG 600 MG (17:33)
--- NOTE | 2023-11-23 18:09 | DI.RAD_ITS ---
Exam(s) XR HIP RT IN OR EXAM: XR HIP RT IN OR CLINICAL HISTORY: right femur, intertrochanteric fracture. TECHNIQUE: 2D digital imaging was performed. COMPARISON: CR XR HIP RT COMPLETE AP PELVIS from 11/22/2023 FINDINGS: Fluoroscopy was provided during ORIF right hip intertrochanteric fracture. See procedure report for details Total fluoroscopy time 36 seconds IMPRESSION: Radiation exposure index/cumulative dose:Aramisr=4.3631 mGy DATA REPOSITORY: RADIATION DOSE DELIVERED:
--- NOTE | 2023-11-23 18:24 | ROE_ITS ---
Date of service: 11/23/23 Time of Service: 17:45 Operative Note Operative Note DATE OF PROCEDURE: 11/23/23 PRE-OP DIAGNOSIS: Right Intertrochanteric Femur Fracture POST-OP DIAGNOSIS: same PROCEDURE: Right Intramedullary Fixation of Proximal Femur Fracture SURGEON: Marcus Perez ANESTHESIA TYPE: General LMA/ETT Refer to Anesthesia Record ESTIMATED BLOOD LOSS: 50 PATHOLOGY: none sent COMPLICATIONS: None Patient was transported to: PACU Patient's condition: stable Implants: Depuy-Synthes TFNA 11mm x 170mm Indications: Ed is a 58 year old male who presented to the Emergency Department after a fall. X-rays confirmed the diagnosis of a intertrochanteric fracture of the proximal femur. I reviewed the possible treatment options and given the fracture of the femur, I recommened operative fixation. I discussed the technical details of the surgery. I reviewed the risks such as bleeding, infection, pain, stiffness, malunion, nonunion, hardware prominence, hardware faiilure, malrotation, avascular necrosis, blood clot. Despite these risks, he agreed to proceed. Findings: There was a fracture of the proximal femur which was able to be reduced with traction and internal rotation and external manipulation. Procedure Description: Ed was taken back to the operating room. A general anesthestic was then administered. The feet were wrapped with cast padding and Coban and then placed into the boot liners and then into the boots. Care was taken to protect the skin and make sure the heels were fully down and the boots were stable. The patient was then positioned onto the HANA table. Both legs were held in a neutral position. SCDs were applied. The patient was then slid down onto a perineal post. The arm of the operative side was then placed across the chest and secured. The nonoperative leg was scissored. A gentle reduction was then performed with traction and internal rotation and gentle external manipulation. Prophylactic antibiotics in the form of Cefazolin were administered. 1g of Tranxemic Acid was given intravenously within 30 minutes of incision. The right leg was then prepped with Chloraprep and draped in a standard fashion with shower-curtain type drape with Iodine impregnated skin protection. A timeout to confirm correct identity, side and site, procedure, allergies, anesthesia, and medical concerns was performed. Using fluoroscopy, the starting point was marked over the lateral hip, proximal to the tip of the greater trochanter. A 3cm incision was made through skin and the fascia of the gluteus musculature until the tip of the trochanter was palpable. The starting wire was placed onto the tip, just slightly on the media aspect, and centered in the AP plane. Using a mago, the starting guide wire was buried into the bone. A lateral x-ray confirmed appropriate position and the guidewire was advanced to the level of the lesser trochanter. With a tissue protector, the proximal femur was opened with the opening reamer. The short T FNA was chosen for this case and a Synthes TFNA [id number] nail was selected and opened on the back table. The nail was assembled to the aiming arm on the back table and confirmed to be aligned with the triple sleeve for blade insertion. Using manual force the nail was advanced into the femur. A few light mallet blows advanced the nail to its appropriate position. The triple sleeve was inserted through the targeting arm and the skin, soft tissue, and IT band was then incised. The triple sleeve was advanced down to the lateral femur. A guidewire was advanced into the femoral head where it was noted to be centered. A lateral x-ray was used to confirm centered positioning on the lateral. Happy with the length of the guidewire, this was measured. A 105mm helical blade was opened. The lateral cortex was opened and the path of the blade was reamed with a tapered reamer to appropriate depth. The helical blade was malletted into position and confirmed to be appropriately located on fluoroscopy. The set screw was advanced to a half turn shy of fully tightened, allowing for the helical blade to slide. The fracture was compressed before removing the targeting device. Then the set screw was fully tightened. The targeting device was removed. AP and lateral x-rays of the hip confirmed appropriate positioning within the femur and with good alignment of the fracture. Using the targeting arm, the skin was incised for placement of the distal locking screw. The trochar was inserted through the skin and IT band down onto the lateral cortex of the femur. The 4.2mm drill was advanced across the femur and through the nail. This was measured and an appropriately sized 5.0mm screw was placed. The targeting arm was removed. Final x-rays were obtained. The wounds were thoroughly irrigated. A cocktail consisting of 123mg of Ropivacaine, 0.25mg of Epinephrine, 0.04mg of Clonidine, and 15mg of Ketorolac, diluted to 50cc was injected throughout the wounds both deep and superficially. The deep fascia of the proximal two wounds was reapproximated with a 0 Vicryl. The deep tisses were closed with a 2-0 Vicryl and the skin was closed with lizandro. The wounds were dressed with a Mepilex silver dressing. At the end of the case, all counts were correct. Ed tolerated the procedure well without known complication and was taken to the PACU for recovery. Physical therapy will start post-operatively, weigh-bearing as tolerated with assistive devices. Anticoagulation will start within 12-24 hours. 3 doses of post-operative antibitiocis for prophylaxis will be administered.
--- NOTE | 2023-11-23 19:43 | W.ANESPOSTOP ---
Postoperative Evaluation Date, Time and Location Date Performed: 11/23/23 Time Performed: 19:00 Patient Location: PACU Vital Signs Most Recent Imported Vital Signs: Most Recent Vital Signs Temp Pulse Resp BP Pulse Ox 36.5 C 109 H 18 140/70 94 11/23/23 18:20 11/23/23 18:56 11/23/23 18:56 11/23/23 18:56 11/23/23 18:56 Pain Score Most Recent Pain Score: Most Recent Pain Score Pain Level [Right Hip] 7 11/23/23 00:05 Pain Level 0 11/23/23 10:54 Assessment Mental Status: Awake (Alert & Oriented to Patient Baseline) Airway and Respiratory Function: Patent airway with normal (patient baseline) respiratory exam Cardiovascular Function: Hemodynamically Stable Hydration Status: Adequately Hydrated Nausea & Vomiting: No Nausea or Vomiting Pain: Pain is tolerable per patient Peripheral Nerve Block: Patient did not receive a nerve block
[2023-11-23] MEDS: Docusate Sodium 100 MG CAP PO (19:58)
[2023-11-24 00:06] VITALS: BP 128/91; PULSE 108; RESP 20; TEMP 36.8; O2SAT 96
[2023-11-24] MEDS: Normal Saline Flush 10 ML SYR IVP ×2 (01:58→19:40)
[2023-11-24] MEDS: ceFAZolin 1 GM/50 ML BAG IVPB ×3 (01:58→18:07)
[2023-11-24 03:03] VITALS: BP 119/87; PULSE 100; RESP 16; TEMP 36.9; O2SAT 94
[2023-11-24 06:37] LABS: HCT 26.9 % (40.0-50.0); HGB 9.3 g/dL (13.5-17.5); MCH 33.5 pg (27.0-33.0); MCHC 34.6 % (32.0-36.0); MCV 97 fL (80-95); MPV 9.8 fL (8.0-11.0); Platelet Count 152 10^3/uL (130-400); RBC 2.78 10^6/uL (4.36-5.78); RDW 12.4 % (11.8-14.1); RDW-SD 43.9 fL; WBC 3.91 10^3/uL (4.4-10.8)
[2023-11-24 06:53] LABS: ALT 82 U/L (16-63); AST 157 U/L (15-37); Albumin 2.6 g/dL (3.4-5.0); Alkaline Phosphatase 158 U/L (46-116); Anion Gap 12.3 mmol/L (3-11); BUN 26 mg/dL (7-18); Bilirubin, Total 1.2 mg/dL (0.2-1.0); CO2 26.7 mmol/L (21.0-32.0); CREATININE 1.2 mg/dL (0.70-1.30); Calcium 8.5 mg/dL (8.5-10.1); Chloride 103 mmol/L (98-107); Estimated GFR 69.66 (mL/min/1.73m2); Glucose 127 mg/dL (74-106); Potassium 4.1 mmol/L (3.5-5.1); Sodium 142 mmol/L (136-145); Total Protein 6.3 g/dL (6.4-8.2)
[2023-11-24 07:26] VITALS: BP 125/87; PULSE 115; RESP 18; TEMP 36.7; O2SAT 93
[2023-11-24] MEDS: Atorvastatin 10 MG TAB PO (07:55)
[2023-11-24] MEDS: Pantoprazole 20 MG TABCR PO (07:56)
[2023-11-24] MEDS: LORazepam 1 MG TAB PO/SL ×4 (07:56→20:32)
[2023-11-24] MEDS: Multivitamin w/Minerals TAB 1 TAB PO (07:56)
[2023-11-24] MEDS: Losartan 50 MG TAB 100 MG PO (07:56)
[2023-11-24] MEDS: Metoprolol CR 100 MG TABCR PO (07:56)
[2023-11-24] MEDS: guaiFENesin 600 MG TABCR PO (07:56)
[2023-11-24] MEDS: Loratidine 10 MG TAB PO (07:57)
[2023-11-24] MEDS: hydroCHLOROthiazide 25 MG TAB PO (07:57)
[2023-11-24] MEDS: Nicotine 14 MG/24 HR PATCH TD (07:57)
[2023-11-24] MEDS: oxyCODONE 5 MG TAB PO ×3 (09:42→19:40)
[2023-11-24] MEDS: Acetaminophen 325 MG TAB 650 MG PO ×2 (09:42→19:39)
--- NOTE | 2023-11-24 09:52 | PGE_ITS ---
Date of Service Date of service: 11/24/23 Time of Service: 13:15 Assessment and Plan Assessment and plan (1) Fracture, intertrochanteric, right femur: Status: Acute Assessment and plan: Ed is recovering from the hip frcture repair. His progress is appropriate although mostly limited by his withdrawal, although this is stable. WBAT with assistive devices. Continue PT. Continue ASA for DVT prevention. (2) Pancytopenia, acquired: Status: Acute (3) Alcohol use disorder: Status: Chronic Assessment and plan: Continue with CIWA. He continues to score but being treated with alprazolam. Appreciate Medicine consult input. (4) Anemia: Status: Chronic Assessment and plan: Continue to follow. Multifactorial from acquired pancytopenia and alcohol use disorder as well as post-operative. Subjective Subjective Interval history since last seen: Ed reports to be doing well. He has had some pain and achiness in the right thigh and it is controlled with the current pain regimen. He still has been scoring but receiving and tolerating the Alprazolam treatment well. No chest pain or shortness of breath. Labs are stable with slightly low magnesium and slight further drop in hemoglobin. Exam Narrative Exam Narrative: Sitting up in the bed. Notable ecchymosis of the right hip/thigh. There is some sanguinous drainage on the dressings. No signs of infection. No significant pain with IR/ER of the right hip. +ADF/APF/EHL/FHL. SILT DP/SP/Tib. Objective Last Vital Signs Temp 36.7 C 11/24/23 07:26 Pulse 115 H 11/24/23 07:26 Resp 18 11/24/23 07:26 BP 125/87 11/24/23 07:26 Pulse Ox 93 11/24/23 07:26 Laboratory Results - last 24 hr 11/23/23 11/24/23 12:47 06:11 WBC 3.91 L RBC 2.78 L Hgb 9.3 L Hct 26.9 L MCV 97 H MCH 33.5 H MCHC 34.6 RDW 12.4 Plt Count 152 MPV 9.8 Sodium 140 142 Potassium 4.0 4.1 Chloride 101 103 Carbon Dioxide 25.0 26.7 Anion Gap 14.0 H 12.3 H BUN 37 H 26 H Creatinine 1.7 H 1.2 Est GFR (CKD-EPI 2020) 45.86 69.66 Glucose 106 127 H Calcium 8.3 L 8.5 Total Bilirubin 1.2 H AST 157 H ALT 82 H Alkaline Phosphatase 158 H Total Protein 6.3 L Albumin 2.6 L PAWSS Have you Been Recently Intoxicated or Drunk Within the Last 30 days?: Yes Have you Ever Experienced Previous Episodes of Alcohol Withdrawal?: No Have you ever Experienced Withdrawal Seizures?: No Have you ever Experienced Delirium Tremens(DT)s?: No Have you ever undergone Alcohol Rehabilitation Treatment (i.e, inpt ot outpatient treatment programs)?: No Have you ever Experienced Blackouts?: No Have you ever Combined Alcohol with other Downers within the last 90 days?: No Have you ever Combined Alcohol with any other Substance of Abuse during the last 90 days?: Yes Positive Blood Alcohol level on Presentation? [PCS.BAL]: No Evidence of Increased Autonomic Activity (i.e. HR>120, tremor, sweating, agitation, nausea)?: Yes Result: 4 Time Spent with Patient Time Spent with Patient: 25-34 minutes Time was spent: preparing to see the patient(eg.review tests), ordering medications,tests, procedures, referring, communicating with other health career services officer and indepentently interpreting results
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
[2023-11-24 11:24] VITALS: BP 114/85; PULSE 114; RESP 18; TEMP 36.8; O2SAT 93
--- NOTE | 2023-11-24 12:15 | W.PM.PROGNOT ---
Date of Service Date of service: 11/24/23 Time of Service: 12:15 Assessment and Plan Assessment and plan (1) Fracture, intertrochanteric, right femur: Status: Acute Assessment and plan: POD #1, plan per orthopedics (2) Alcoholic hepatitis: Status: Acute Assessment and plan: Transaminases up c/w alcohol consumption, but high bili on admission concerning for significant alcoholic hepatitis but INR was normal so no steroids indicated, good prognosis. see below re: AUD Qualifiers: Ascites presence: without ascites Qualified Code(s): K70.10 - Alcoholic hepatitis without ascites (3) Acute kidney injury: Status: Acute Assessment and plan: Normalized with IV hydration. Now taking oral fluids. (4) Tobacco use disorder: Status: Chronic Assessment and plan: continue supplement with nicotine patch per his request in the hospital. (5) Alcohol use disorder: Status: Chronic Assessment and plan: Having mild withdrawal sympotms now. I offered a short oral taper of benzodiazepines to accompany a sober trial but he states he will drink when he goes home and then think about it. He declines other adjunctive medications. He does not fully endorse his alcohol problem. I made it very clear this is a serious medical problem and strongly recommended abstainance. (6) Pancytopenia, acquired: Status: Acute Assessment and plan: very likely alcoholic. See above. He should get elastography/fibroscan as outpatient to assess for cirrhosis, but he could have this from bone marrow suppression without cirrhosis. Had recent normal iron studies. Get B12/folate as he is at risk for poor nutritional status. Subjective Subjective Patient reports: no new complaints, tolerating a regular diet and voiding w/o difficulty; denies nausea, vomiting, shortness of breath or fever Interval history since last seen: POD #1 s/p intermedullary fixation right femur, no complications He was up with PT today. He feels okay. He admits he wants a drink. Exam Narrative Exam Narrative: GEN: awake, alert, oriented, sitting up in chair with computer. Mildly anxious appearing. ENT: Mucous membranes moist, no icterus. RESP: clear to auscultation bilateral, no wheeze/rhonchi/rales CARDIOVASCULAR: RRR, no murmur, rub radames. ABDOMEN: Soft, tender to palpation mid abdomen, no mass. +Bowel sounds Neuro: Grossly normal neurologic exam, slight tremor Psych: Speech fluent, thoughts congruent Objective Last Vital Signs Temp 36.8 C 11/24/23 11:24 Pulse 114 H 11/24/23 11:24 Resp 18 11/24/23 11:24 BP 114/85 11/24/23 11:24 Pulse Ox 93 11/24/23 11:24 Laboratory Results - last 24 hr 11/23/23 11/24/23 12:47 06:11 WBC 3.91 L RBC 2.78 L Hgb 9.3 L Hct 26.9 L MCV 97 H MCH 33.5 H MCHC 34.6 RDW 12.4 Plt Count 152 MPV 9.8 Sodium 140 142 Potassium 4.0 4.1 Chloride 101 103 Carbon Dioxide 25.0 26.7 Anion Gap 14.0 H 12.3 H BUN 37 H 26 H Creatinine 1.7 H 1.2 Est GFR (CKD-EPI 2020) 45.86 69.66 Glucose 106 127 H Calcium 8.3 L 8.5 Total Bilirubin 1.2 H AST 157 H ALT 82 H Alkaline Phosphatase 158 H Total Protein 6.3 L Albumin 2.6 L PAWSS Have you Been Recently Intoxicated or Drunk Within the Last 30 days?: Yes Have you Ever Experienced Previous Episodes of Alcohol Withdrawal?: No Have you ever Experienced Withdrawal Seizures?: No Have you ever Experienced Delirium Tremens(DT)s?: No Have you ever undergone Alcohol Rehabilitation Treatment (i.e, inpt ot outpatient treatment programs)?: No Have you ever Experienced Blackouts?: No Have you ever Combined Alcohol with other Downers within the last 90 days?: No Have you ever Combined Alcohol with any other Substance of Abuse during the last 90 days?: Yes Positive Blood Alcohol level on Presentation? [PCS.BAL]: No Evidence of Increased Autonomic Activity (i.e. HR>120, tremor, sweating, agitation, nausea)?: Yes Result: 4 Time Spent with Patient Time Spent with Patient: 35-49 minutes Time was spent: preparing to see the patient(eg.review tests), obtaining and/or reviewing separately otained hiistory, ordering medications,tests, procedures, referring, communicating with other health child care specialist, indepentently interpreting results and counseling the patient
--- NOTE | 2023-11-24 15:06 | PT.INTREAT ---
PT Notes Visit Reasons: right hip fracture Inpatient Physical Therapy Treatment Note [facility] Date: 11/24/23 SUBJECTIVE: Ed reports that his butt robert hurts. He states that he is ready to go home now. OBJECTIVE: []? PAIN:4.5/10 pain rating VITALS: ?[facility] [place] Therapeutic Activities ([id number]): Direct one-on-one instruction in dynamic activities to improve functional performance. ? BED MOBILITY/TRANSFERS? pt seated in recliner.? Sit-stand: min A/ CGA? Stand-sit: CGA ? Provided skilled cues and instruction on performance and technique throughout. GAIT? Assistive Device: FWW? Weight bearing: AT right Assist: CGA? Distance:? 25'x2 ? Deviation: safety, proper walker management? sit to stand ex x5. CGA/min A? ASSESSMENT:?cues needed for proper/safe management of walker as he tends to push it too far ahead of him. Also required consistent cues to push off of chair with UE vs pulling on walker. Noted him to be quite shaky t/o session of which his SO reported he was detoxing. PLAN: will continue to work on his strength and functional mobility to tolerance following PT POC. TREATMENT CODE/TIME: 20 min. [id number]
[2023-11-24 15:08] VITALS: BP 127/94; PULSE 105; RESP 18; TEMP 36.7; O2SAT 93
[2023-11-24 15:54] LABS: Magnesium 1.5 mg/dL (1.8-2.4)
[2023-11-24 16:08] LABS: Folate 11.6 ng/mL (8.6-20.0); Vitamin B12 617 pg/mL (193-986)
[2023-11-24] MEDS: MAGNESIUM SULFATE 2 GM/50 ML BAG IVINF (19:39)
[2023-11-24] MEDS: Magnesium Oxide 400 MG TAB PO (19:40)
[2023-11-24 19:44] VITALS: BP 130/92; PULSE 107; RESP 18; TEMP 36.4; O2SAT 95
[2023-11-25 01:05] VITALS: PULSE 87
[2023-11-25 01:38] VITALS: BP 132/91; PULSE 93; RESP 14; TEMP 37; O2SAT 93
[2023-11-25] MEDS: oxyCODONE 5 MG TAB PO ×2 (04:11→14:53)
[2023-11-25] MEDS: LORazepam 1 MG TAB PO/SL (04:11)
[2023-11-25 07:42] VITALS: BP 128/87; PULSE 92; RESP 17; TEMP 36.7; O2SAT 94
[2023-11-25] MEDS: Pantoprazole 20 MG TABCR PO (09:38)
[2023-11-25] MEDS: Nicotine 14 MG/24 HR PATCH TD (09:38)
[2023-11-25] MEDS: Multivitamin w/Minerals TAB 1 TAB PO (09:38)
[2023-11-25] MEDS: guaiFENesin 600 MG TABCR PO (09:38)
[2023-11-25] MEDS: hydroCHLOROthiazide 25 MG TAB PO (09:38)
[2023-11-25] MEDS: Loratidine 10 MG TAB PO (09:38)
[2023-11-25] MEDS: Magnesium Oxide 400 MG TAB PO (09:38)
[2023-11-25] MEDS: Atorvastatin 10 MG TAB PO (09:38)
[2023-11-25] MEDS: Losartan 50 MG TAB 100 MG PO (09:38)
[2023-11-25] MEDS: Metoprolol CR 100 MG TABCR PO (09:38)
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
[2023-11-25 11:12] LABS: HCT 28.5 % (40.0-50.0); HGB 9.5 g/dL (13.5-17.5); MCH 32.8 pg (27.0-33.0); MCHC 33.3 % (32.0-36.0); MCV 98 fL (80-95); MPV 8.8 fL (8.0-11.0); Platelet Count 177 10^3/uL (130-400); RDW 12.2 % (11.8-14.1); RDW-SD 43.8 fL
[2023-11-25 11:19] VITALS: BP 142/104; PULSE 111; RESP 17; TEMP 37.3; O2SAT 94
[2023-11-25 11:25] LABS: Anion Gap 9.5 mmol/L (3-11); BUN 20 mg/dL (7-18); CO2 29.5 mmol/L (21.0-32.0); Chloride 101 mmol/L (98-107); Glucose 108 mg/dL (74-106); Potassium 3.7 mmol/L (3.5-5.1); Sodium 140 mmol/L (136-145)
--- NOTE | 2023-11-25 11:43 | PTTR_ITS ---
PT Notes Visit Reasons: right hip fracture Physical Therapy Inpatient Treatment Note Date: 11/25/2023 Precautions: Fall. Standard. Activity as tolerated. Subjective: Feels much better. Agreeable to seeing how much better he moves and walks today. Objective: General Observation: Mepilx Ag over surgical incision. Keyla munoz present in room throughout. TEDS to B legs. Mental Status: Alert and oriented as to person, place, time, and purpose. Able to pay attention, focus, and respond appropriately. Pain: 4-5/10 in the R hip, 8/10 with weight bearing Vital Signs: Closely monitored by nursing staff Bed Mobility/Transfers: Minimal cueing provided for use of B hands as needed for support, movement sequence, AD management, and posture to reduce fall risk and minimize pain report Rolling contact guard assist Supine to sit contact guard assist Sit to supine contact guard assist Sit to stand contact guard assist with FWW Stand to sit contact guard assist with FWW Bed to reclining chair contact guard assist with FWW Gait: Covered a distance of 50 feet + 50 feet with less ataxia and more stability needing contact guard assist with wheelchair follow of KEYLA Munoz. Uneven step length and height. Moderate verbal cues provided to stay at safe distance from walker and for limb movement sequence. Balance: Static Sitting: Fair Dynamic Sitting: Poor Static Standing: Poor Dynamic Standing: Poor Assessment: Gait not as much antalgic but remains mildly ataxic. Directional change requires minimal assist to prevent patient from lagging too far behind walker and causing shifting of his center of mass that cold cause him to lose balance. Trained significant other on safe assistance with transfer/ambulation performance. Plan of Care/Treatment Plan: 1-2x/day, 7 days/week x 1 week. Plan of care has been reviewed with the RACE STARTER providing the service under Physical Therapy direction. Initiate Physical Therapy intervention for pain management as needed, strengthening, bed mobility, transfers, gait, stairs, balance training, and use of assistive device. DISCHARGE RECOMMENDATIONS: [] Home with no services [] [X] Home with services. Patient will benefit from home health PT services in order to progress mobility level using least restrictive assistive ambulatory device, assess home safety, identify additional equipment needs, and establish a functional maintenance program that will increase ability of patient to remain at home. [] Home with outpatient PT [] [] SNF for continued rehabilitation [] [] Lead Javascript Developer Care [] [] SNF versus LTC based on ability to participate and progress [] TREATMENT CODE/TIME: 44682 x 20 minutes for 1 unit (11:43?12: 03).
--- NOTE | 2023-11-25 13:14 | PT.INTREAT ---
PT Notes Visit Reasons: right hip fracture Inpatient Physical Therapy Treatment Note [facility] Date: 11/25/23 PRECAUTIONS:WBAT R LE SUBJECTIVE: Pt reports that he is having more pain hi his leg this afternoon. Pt reports that he wants to go home. OBJECTIVE: Therapeutic Activities (38129z[1]): Direct one-on-one instruction in dynamic activities to improve functional performance. ? BED MOBILITY/TRANSFERS? Sit-stand: CGAx2? Stand-sit: CGAx2 ? Provided skilled cues and instruction on performance and technique throughout. Gait Training ([id number][]): Direct one-on-one instruction and skilled instruction in: [X] employing an assistive device [] modified weight-bearing status [X] movement sequencing [] turning and movement with proper form [X] Provided verbal cues for equipment management and technique [] Provided instruction in gait pattern [] Patient education regarding pacing and breathing techniques to maximize activity tolerance? GAIT? Assistive Device: FWW? Weight bearing: WBAT R LE Assist: CGAx2? Distance:? Approx 35ftx2 with no seated rest but follow behind w/c ? Therapeutic Exercises ([id number][]): Direct one-on-one instruction in therapeutic exercises to develop strength, endurance, range of motion and flexibility. ? Exercises ? Refused ASSESSMENT:? Pt is very anxious to go home. Pt was more undsteady this pm than am noted by his . Pt did require vc's for safety with transferring back into the chair. PLAN: Cont as per PT POC. TREATMENT CODE/TIME: 1-1:15 ( 15) TA
[2023-11-25] MEDS: Acetaminophen 325 MG TAB 650 MG PO (14:53)
--- NOTE | 2023-11-25 15:51 | CHAPLAIN ---
Ed was waiting to be discharged when I visited him this afternoon. He's happy to being going home and said he'll be more comfortable in his own bed. He lives in [facility] and said he doesn't have far to go to get home.
--- NOTE | 2023-11-25 16:11 | CMDISCH_ITS ---
Date of service: 11/25/23 Time of Service: 16:11 LACE Index Scoring Tool Questions: Length of Stay (in days): 3 Was the patient admitted via the E.D.?: Yes Comorbidities: Liver or Renal Disease E.D. Visits: 1 Answers: Total Score: 12 Risk of Readmission: High Risk Care Management Discharge Plan Reason for Hospitalization: right hip fracture Discharge Plan: Ed will be discharged home with new home health PT services. He will follow up with his PCP and plan of care and transport with family. Patient/Family Education Needs: Review discharge instructions, discuss Ask Me Three Services Needed at Discharge: Home Health Care Services SDOH Health Related Social Needs: Health related social needs inadequate housing, person al safety Health related social needs: inadequate housing(Z59.1) and problem related to primary support group(Z63.9)
[2023-11-26 13:50] LABS: Lab Add On Test Done
== END 2023-11-25 15:35 | disposition home health service (06) | DRG 481 ==
LOC: ER 17:43 → MS 18:26
PROVIDERS: Family Medicine; Internal Medicine; Admitting Provider Student in an Organized Health Care Education/Training Program; Emergency Provider Emergency Medicine; PCP Student in an Organized Health Care Education/Training Program; Visit Provider Student in an Organized Health Care Education/Training Program
PROC: 0QS606Z Reposition Right Upper Femur with Intramedullary Internal Fixation Device, Open Approach (ICD-10-PCS; CPT 27245; principal; 2023-11-23 17:15)
DX: S72.141A Displaced intertrochanteric fracture of right femur, initial encounter for closed fracture (principal); D61.818 Other pancytopenia; N17.9 Acute kidney failure, unspecified; G45.8 Other transient cerebral ischemic attacks and related syndromes; K90.9 Intestinal malabsorption, unspecified; F10.139 Alcohol abuse with withdrawal, unspecified; W54.1XXA Struck by dog, initial encounter; Y93.K1 Activity, walking an animal; F32.9 Major depressive disorder, single episode, unspecified; Z87.11 Personal history of peptic ulcer disease; E78.5 Hyperlipidemia, unspecified; R73.01 Impaired fasting glucose; H90.6 Mixed conductive and sensorineural hearing loss, bilateral; F41.9 Anxiety disorder, unspecified; K76.0 Fatty (change of) liver, not elsewhere classified; F17.290 Nicotine dependence, other tobacco product, uncomplicated; D64.9 Anemia, unspecified; E83.42 Hypomagnesemia
CPT/HCPCS: 27245; 00123; 36415; 80048; 80053; 85027; 96374; 97162; 97530; 99285; 73501; 73502; 82607; 82746; 83735; 85025; 85610; 85730; 99222; 99232; J0690; J1100; J1805; J2250; J2270; J2405; J2704; J3411; J3475

== ENCOUNTER 2023-12-27 12:33 | Outpatient (CLI) | payer MEDICAID, SELFPAY ==
--- NOTE | 2023-12-27 11:45 | DI.RAD_ITS ---
Exam(s) XR HIP RT AP LAT ONLY EXAM: XR HIP RT AP LAT ONLY INDICATION: S/P IM FIXATION R FEMUR. COMPARISON: CR XR HIP RT COMPLETE AP PELVIS from 11/22/2023 XA XR HIP RT IN OR from 11/23/2023 TECHNIQUE: 2D digital imaging was performed. Two views. FINDINGS: Stable fracture and hardware alignment. Lateral skin lizandro noted. No new abnormalities DATA REPOSITORY: RADIATION DOSE DELIVERED:
== END 2023-12-27 12:34 | disposition home or self-care (01) ==
LOC: DIORS 12:33
PROVIDERS: PCP Student in an Organized Health Care Education/Training Program; Visit Provider Student in an Organized Health Care Education/Training Program
DX: S72.141A Displaced intertrochanteric fracture of right femur, initial encounter for closed fracture (principal)
CPT/HCPCS: 73502

== ENCOUNTER 2024-01-07 01:58 | Outpatient (CLI) | payer MEDICAID, SELFPAY ==
[2024-01-07 15:11] LABS: Folate 5.7 ng/mL (8.6-20.0)
[2024-01-07 15:24] LABS: ALT 80 U/L (16-63); AST 151 U/L (15-37); Alkaline Phosphatase 247 U/L (46-116); Anion Gap 10.8 mmol/L (3-11); BUN 13 mg/dL (7-18); Bilirubin, Total 0.43 mg/dL (0.2-1.0); CO2 24.2 mmol/L (21.0-32.0); CREATININE 1.3 mg/dL (0.70-1.30); Calcium 8.7 mg/dL (8.5-10.1); Chloride 105 mmol/L (98-107); Estimated GFR 63.28 (mL/min/1.73m2); Glucose 103 mg/dL (74-106); Potassium 4.9 mmol/L (3.5-5.1); Sodium 140 mmol/L (136-145); Total Protein 6.5 g/dL (6.4-8.2); Vitamin B12 525 pg/mL (193-986); Vitamin D 25 Total 5.2 ng/mL (30-100)
[2024-01-07 15:34] LABS: Bilirubin, Direct 0.2 mg/dL (0.0-0.2)
== END 2024-01-07 01:59 | disposition home or self-care (01) ==
LOC: LBO 01:58
PROVIDERS: PCP Student in an Organized Health Care Education/Training Program; Referring Provider Student in an Organized Health Care Education/Training Program; Visit Provider Student in an Organized Health Care Education/Training Program
DX: I10 Essential (primary) hypertension (principal); R74.8 Abnormal levels of other serum enzymes; F17.200 Nicotine dependence, unspecified, uncomplicated; K29.90 Gastroduodenitis, unspecified, without bleeding; K90.9 Intestinal malabsorption, unspecified
CPT/HCPCS: 36415; 80048; 80076; 82306; 82607; 82746

== ENCOUNTER 2024-01-24 11:40 | Outpatient (CLI) | payer MEDICAID, SELFPAY ==
--- NOTE | 2024-01-24 09:30 | DI.RAD_ITS ---
Exam(s) XR HIP RT AP LAT ONLY EXAM: XR HIP RT AP LAT ONLY CLINICAL HISTORY: S/P IM NAIL R FEMUR. TECHNIQUE: 2D digital imaging was performed. Two images were obtained. AP and lateral views were ob tained. COMPARISON: CR XR HIP RT AP LAT ONLY from 12/27/2023 FINDINGS: BONES: There are stable post operative changes of internal fixation of intertrochanteric right femora l fracture present. No new fracture or dislocation. JOINTS: The joint spaces are well maintained. SOFT TISSUE: Normal. IMPRESSION: Stable postoperative changes. DATA REPOSITORY: RADIATION DOSE DELIVERED:
== END 2024-01-24 11:41 | disposition home or self-care (01) ==
LOC: DIORS 11:41
PROVIDERS: PCP Student in an Organized Health Care Education/Training Program; Visit Provider Physician Assistant
DX: S72.141D Displaced intertrochanteric fracture of right femur, subsequent encounter for closed fracture with routine healing (principal); X58.XXXA Exposure to other specified factors, initial encounter
CPT/HCPCS: 73502

== ENCOUNTER 2024-02-21 11:40 | Outpatient (CLI) | payer MEDICAID, SELFPAY ==
--- NOTE | 2024-02-21 10:15 | DI.RAD_ITS ---
Exam(s) XR HIP RT AP LAT ONLY EXAM: XR HIP RT AP LAT ONLY INDICATION: S/P R IM NAIL. COMPARISON: CR XR HIP RT AP LAT ONLY from 01/24/2024 TECHNIQUE: 2D digital imaging was performed. Two views. FINDINGS: Stable fracture and hardware alignment. Continued healing at proximal femoral fracture. No new abno rmalities. DATA REPOSITORY: RADIATION DOSE DELIVERED:
== END 2024-02-21 11:41 | disposition home or self-care (01) ==
LOC: DIORS 11:41
PROVIDERS: PCP Student in an Organized Health Care Education/Training Program; Visit Provider Student in an Organized Health Care Education/Training Program
DX: S72.141D Displaced intertrochanteric fracture of right femur, subsequent encounter for closed fracture with routine healing (principal); X58.XXXD Exposure to other specified factors, subsequent encounter
CPT/HCPCS: 73502

== ENCOUNTER 2024-05-31 02:56 | Outpatient (CLI) | payer MEDICAID, SELFPAY ==
--- NOTE | 2024-05-31 06:15 | DI.CTLCSR_ITS ---
Exam(s) CT CHEST LUNG CANCER SCREEN EXAM: CT CHEST LUNG CANCER SCREEN CLINICAL HISTORY: Screening for lung cancer,CURRENT SMOKER, F17.200 TECHNIQUE: Imaging Protocol: Axial computed tomography images with coronal and sagittal reformatted images were created and reviewed. Lung Computer Aided Detection (CAD) was utilized. COMPARISON: CT CT CHEST PE CTA from 08/09/2019 FINDINGS: The examination is limited due to patient motion artifact. Tracheobronchial tree: Patent where visualized. No bronchiectasis. Pulmonary parenchyma: No consolidation or dominant measurable mass. Mild centrilobular emphysematous changes are present. There are areas of scarring in the right middle and left lingular lobes. Atele ctatic changes are seen in the lung bases. Lung Nodules: None. Mediastinum and Guerline: No dominant adenopathy or fluid collection. The esophagus is unremarkable. Thyroid gland: Unremarkable. Lymph nodes: Unremarkable. Pleura: No effusion or pneumothorax. Heart: The heart is not dilated. No coronary artery calcifications are seen. No pericardial effusion . Aorta: Thoracic aorta non-dilated.Mild atherosclerotic calcification is present. Upper abdomen: There is diffuse decreased attenuation of the liver consistent with fatty infiltratio n. Soft Tissues: Mild gynecomastia bilaterally. Bones: Within normal limits. There are old healed and nonunited rib fractures present. IMPRESSION: No suspicious pulmonary nodules. Lung RADS Cat 1 - Negative: No nodules and definitely benign nodules Lung-RADS 1.0 CATEGORIES: Category 0 - Prior chest CT exam(s) being located for comparison. Category 1 - Annual screening in 12 months. No nodules or definitely benign nodules. Category 2 - Annual screening in 12 months. Benign appearance. Nodules with low likelihood of becomin g active cancer. Category 3 - 6-month follow-up. Probably benign. Short-term follow-up suggested. Nodules with low lik elihood of becoming active cancer. Category 4A - 3-month follow-up and CT/PET if >8 mm in size. Suspicious finding. Findings which requi re additional testing. Category 4B - Findings which require additional testing and tissue sampling. Suspicious finding. Category 4X - Category 3 or 4 nodules with additional features or imaging findings that increases the suspicion of malignancy. Modifier S- Potentially clinically significant finding. (Non lung cancer) RADIATION DOSE DELIVERED: 31.08mGy.cm Total DLP 31.08mGy.cmTotal DLP DATA REPOSITORY: All CT scans at this facility are submitted to the National Radiology Data Registry (NRDR) Dose Index Registry (DIR) with the [employer] (ACR). RADIATION OPTIMIZATION: All CT scans at this facility use at least one of these dose optimization te chniques: automated exposure control; mA and/or kV adjustment per patient size (includes targeted exa ms where dose is matched to clinical indication); or iterative reconstruction.
== END 2024-05-31 03:16 ==
LOC: DI 02:57
PROVIDERS: PCP Student in an Organized Health Care Education/Training Program; Visit Provider Student in an Organized Health Care Education/Training Program
DX: F17.200 Nicotine dependence, unspecified, uncomplicated (principal); Z72.89 Other problems related to lifestyle; Z12.2 Encounter for screening for malignant neoplasm of respiratory organs
CPT/HCPCS: 71271

== ENCOUNTER 2024-05-31 04:20 | Outpatient (CLI) | payer MEDICAID, SELFPAY ==
[2024-05-31 08:30] LABS: Abs Immature Grans 0.03 10^3/uL (0.0-0.06); Absolute Basophil Count 0.09 10^3/uL (0.0-0.2); Absolute Eosinophil Count 0.17 10^3/uL (0.0-0.7); Absolute Lymphocyte Count 3.21 10^3/uL (1.2-3.4); Absolute Monocyte Count 0.69 10^3/uL (0.1-0.8); Absolute Neutrophil Count 2.99 10^3/uL (1.2-6.7); Basophils % 1.3 %; Eosinophils % 2.4 %; HCT 42.4 % (40.0-50.0); HGB 13.7 g/dL (13.5-17.5); Immature Grans % 0.4 %; Lymphocytes % 44.7 %; MCH 32.4 pg (27.0-33.0); MCHC 32.3 % (32.0-36.0); MCV 100 fL (80-95); MPV 8.5 fL (8.0-11.0); Monocytes % 9.6 %; Neutrophils % 41.6 %; Platelet Count 292 10^3/uL (130-400); RBC 4.23 10^6/uL (4.36-5.78); RDW 14.1 % (11.8-14.1); RDW-SD 51.3 fL; WBC 7.18 10^3/uL (4.4-10.8)
[2024-05-31 09:32] LABS: Folate 3.4 ng/mL (8.6-20.0)
[2024-05-31 09:38] LABS: ALT 54 U/L (16-63); AST 70 U/L (15-37); Albumin 3.4 g/dL (3.4-5.0); Alkaline Phosphatase 114 U/L (46-116); BUN 24 mg/dL (7-18); Bilirubin, Total 0.33 mg/dL (0.2-1.0); CREATININE 1.2 mg/dL (0.70-1.30); Calcium 9.4 mg/dL (8.5-10.1); Chloride 107 mmol/L (98-107); Estimated GFR 69.66 (mL/min/1.73m2); Glucose 104 mg/dL (74-106); Iron 203 ug/dL (65-175); Magnesium 1.9 mg/dL (1.8-2.4); Potassium 3.7 mmol/L (3.5-5.1); Sodium 145 mmol/L (136-145); TSH (W/Ref FT4) 1.97 uIU/mL (0.36-3.74); Total Iron Binding Capacity 361 ug/dL (250-450); Total Protein 7.5 g/dL (6.4-8.2); Transferrin Sat 56 % (20-55); Vitamin D 25 Total 59.4 ng/mL (30-100)
[2024-05-31 19:47] LABS: PSA, Screening 0.8 ng/mL (<=3.5)
== END 2024-05-31 04:21 | disposition home or self-care (01) ==
LOC: LBO 04:20
PROVIDERS: PCP Student in an Organized Health Care Education/Training Program; Visit Provider Student in an Organized Health Care Education/Training Program
DX: Z91.89 Other specified personal risk factors, not elsewhere classified (principal); F32.A Depression, unspecified; S09.90XA Unspecified injury of head, initial encounter; I10 Essential (primary) hypertension; I99.8 Other disorder of circulatory system; G45.8 Other transient cerebral ischemic attacks and related syndromes; E55.9 Vitamin D deficiency, unspecified; K76.0 Fatty (change of) liver, not elsewhere classified; R74.8 Abnormal levels of other serum enzymes; K90.9 Intestinal malabsorption, unspecified; S72.141A Displaced intertrochanteric fracture of right femur, initial encounter for closed fracture; D64.9 Anemia, unspecified; R60.9 Edema, unspecified; Z12.5 Encounter for screening for malignant neoplasm of prostate
CPT/HCPCS: 36415; 80053; 82306; 84153; 82746; 83540; 83550; 83735; 84443; 85025